=== PATIENT | female | born 1955 | race Caucasian/White ===

== ENCOUNTER → 2021-07-21 13:38 | Outpatient (CLI) | payer OTHER, SELFPAY ==
--- NOTE | 2021-07-21 | DI.MG.S_ITS ---
BILATERAL DIGITAL SCREENING MAMMOGRAM 3D/2D WITH CAD POST LUMPECTOMY: 07/21/2021 CLINICAL: Routine screening. Personal history of right breast cancer. Comparison is made to exams dated: 11/16/2019 mammogram, 11/14/2018 mammogram, and 10/23/2016 mammogram - outside location. The tissue of both breasts is predominantly fatty. Current study was also evaluated with a Computer Aided Detection (CAD) system. There are benign post operative findings in the right breast. No significant masses, calcifications, or other findings are seen in either breast. There has been no significant interval change. IMPRESSION: BENIGN There is no mammographic evidence of malignancy. A 1 year screening mammogram is recommended. This exam was interpreted at Station ID: [id number]. NOTE: For mammograms, a report in lay terms will be sent to the patient. Approximately 15% of breast malignancies will not be visualized mammographically. In the management of a palpable breast mass, a negative mammogram must not discourage biopsy of a clinically suspicious lesion. Electronically Signed By: Miles Davidson acr/roger:07/21/2021 14:58:07 letter sent: Normal Exam ACR BI-RADS Category 2: Benign Finding(s) 3342F
== END ==
PROVIDERS: PCP Internal Medicine; Referring Provider Internal Medicine; Visit Provider Internal Medicine
DX: Z12.31 Encounter for screening mammogram for malignant neoplasm of breast (principal); Z85.3 Personal history of malignant neoplasm of breast
CPT/HCPCS: 77063; 77067

== ENCOUNTER → 2023-05-15 08:28 | Outpatient (CLI) | payer MEDICARE, OTHER, SELFPAY ==
--- NOTE | 2023-05-15 08:33 | DI.MG.S_ITS ---
BILATERAL DIGITAL DIAGNOSTIC MAMMOGRAM 3D/2D: 05/15/2023 CLINICAL: Intermittent pain in bilateral breasts. Comparison is made to exams dated: 07/21/2021 mammogram - [facility], 11/16/2019 mammogram, and 11/14/2018 mammogram - outside location. There are scattered areas of fibroglandular density in both breasts (category b / 25%-50% glandular tissue). There are benign post operative findings in the right breast. No significant masses, calcifications, or other findings are seen in either breast. IMPRESSION: BENIGN There is no mammographic abnormality seen in either breast to correspond with the intermittent diffuse pain, however, clinical followup is recommended. There is no mammographic evidence of malignancy. Return to annual mammogram screening schedule is recommended. This exam was interpreted at Station ID: [id number]. NOTE: For mammograms, a report in lay terms will be sent to the patient. Approximately 15% of breast malignancies will not be visualized mammographically. In the management of a palpable breast mass, a negative mammogram must not discourage biopsy of a clinically suspicious lesion. Electronically Signed By: Mary Benavides M.D. lk/:05/15/2023 09:38:04 letter sent: Clinical Evaluation ACR BI-RADS Category 2: Benign Finding(s) 3342F
== END ==
PROVIDERS: PCP Internal Medicine; Referring Provider Internal Medicine; Visit Provider Internal Medicine
DX: N64.4 Mastodynia (principal); C50.919 Malignant neoplasm of unspecified site of unspecified female breast
CPT/HCPCS: 77066; G0279

== ENCOUNTER 2023-07-02 12:40 | Day surgery (SDC) | payer MEDICARE, OTHER, SELFPAY ==
[2023-07-02] VITALS (7 sets, daily range): BP systolic 130–157; BP diastolic 63–96; PULSE 58–65; RESP 12–20; TEMP 36.2; O2SAT 97–100
--- NOTE | 2023-07-02 | PATH_ITS ---
[facility] Accession Number: [id number] No. of containers..02 Tissue . 01 Material submitted: . PART A: esophagus, E-G Junction - GE JUNCTION PART B: esophagus - ESOPHAGUS . 01 Diagnosis: Part A: GE JUNCTION: Squamous mucosa with mild reactive changes suggestive of reflux. Eosinophils are not increased. . Part B: ESOPHAGUS: Squamous mucosa with no diagnostic alterations. Eosinophils are not increased. STO 07/05/20231720 Local . 01 Electronically signed: . Jamaal Morales MD, Pathologist NPI- [id number] . 01 Gross description: . Part A: GE JUNCTION: Received in formalin is 1 fragment(s) of mercer, soft tissue measuring 0.2 x 0.2 x 0.2 cm submitted entirely in 1 cassette(s) . Part B: ESOPHAGUS: Received in formalin is 1 fragment(s) of mercer, soft tissue measuring 0.2 x 0.2 x 0.2 cm submitted entirely in 1 cassette(s) /TRUMAN 07/05/20231720 Local . 01 Pathologist provided ICD-10: K21.00 . 01 CPT . 467103, 155170 Specimen Comment: A courtesy copy of this report has been sent to [phone] Performed at: 01 [facility] [address] [place] [address] [address], [place], [place] [id number] MD Jamaal Morales MD Phone: [phone]
[2023-07-02] MEDS: LACTATED RINGERS 1,000 ML 42 ML IV (13:07)
--- NOTE | 2023-07-02 13:52 | PM.PREOP ---
Pre-operative Note Interval Note History & Physical reviewed/Exam performed by Physician: Yes Changes to H&P: No
--- NOTE | 2023-07-02 14:49 | P.OP.EGD&C_ITS ---
Operative Date/Time/Diagnoses Date of procedure: 07/02/23 Time of procedure: 14:49 Pre-op diagnosis: Rectal bleeding, GERD Procedure & Clinicians Study performed: Esophagogastroduodenoscopy and colonoscopy Same procedure as scheduled: Yes Indications: Intestinal bleeding Surgeon: Oscar Webster Procedure Notes Procedure in detail: The history and physical was performed/updated and the patient is ASA class is 2. The procedure was discussed in detail with the patient. Potential risks complications including infection, bleeding, missed diagnosis, perforation, need for surgery, and were explained. Their questions were answered and informed consent was obtained. Patient placed in left lateral decubitus position. Time out was performed. Procedural sedation was administered by Anesthesia. A bite block was placed. the scope was inserted into the mouth and advanced through the esophagus and into the stomach. the pylorus was intubated and the duodenum was examined to the 2nd portion.. The scope was retroflexed within the stomach. The stomach was the n decompressed and scope pulled back to the GE junction. The scope was then removed Examination began with a thorough inspection of the perianal area there was no evidence of fissures, fistulae, external hemorrhoids or cutaneous malignancy. The colonoscopy scope was then placed into the anal canal and was advanced to the cecum, which was identified by the ileocecal valve, the appendiceal orifice and the confluence of the taenia. The scope was then slowly withdrawn examining colon thoroughly in all directions, irrigating it of any residual stool. FINDINGS -mild erythema at the GE junction biopsies performed of the GE junction with forceps. Biopsies of the esophagus performed with forceps. -no colon masses or inflammation. -grade 2 internal hemorrhoids. The patient tolerated the procedure well. They will be discharged once criteria are met. The prep was of good/excellent quality. The withdrawl time was 7 minutes. Following completion of the colonoscopy we proceeded with hemorrhoidal banding. The anoscope was placed into the rectum. Exam demonstrated grade 2 internal hemorrhoids in the left lateral and right posterior positions. Each pedicle was grasped with the suction ligated and then doubly ligated at its base. She tolerated the procedure well and was transferred to recovery in stable condition. Specimen(s): other (GE junction, esophagus biopsy) Complications: none Impression: Internal hemorrhoids Post-procedure Plan for aftercare: Avoid constipation. MiraLax stool softener and fiber as needed. Repeat colonoscopy 10 years Disposition: same day surgery
[2023-07-02] MEDS: OXYCODONE IR 5 MG TABLET PO (15:04)
[2023-07-02] MEDS: ACETAMINOPHEN 325 MG TABLET 975 MG PO (15:04)
== END 2023-07-02 15:39 | disposition home or self-care (01) ==
PROVIDERS: PCP Internal Medicine; Referring Provider Surgery; Visit Provider Surgery
PROC: 0DJ08ZZ Inspection of Upper Intestinal Tract, Via Natural or Artificial Opening Endoscopic (ICD-10-PCS; CPT 45378; principal; 2023-07-02 13:45)
PROC: 0DJD8ZZ Inspection of Lower Intestinal Tract, Via Natural or Artificial Opening Endoscopic (ICD-10-PCS; CPT 45378; 2023-07-02 13:45)
DX: K64.1 Second degree hemorrhoids (principal); K21.9 Gastro-esophageal reflux disease without esophagitis; K62.5 Hemorrhage of anus and rectum
CPT/HCPCS: 45378; 46221; 43239; J2704

== ENCOUNTER 2023-12-27 11:17 | Emergency (ER) | payer MEDICARE, OTHER, SELFPAY ==
[2023-12-27 11:20] VITALS: BP 148/77; PULSE 64; RESP 16; TEMP 36.3; O2SAT 99; BMI 25.8
--- NOTE | 2023-12-27 12:22 | ED_ITS ---
HPI - Recheck/Abnormal Lab/Rx <Anay Lopez PA-C - Last Filed: 12/27/23 12:43> General Chief Complaint: Recheck/Abnormal Lab/Rx Stated Complaint: stroke per pt Time Seen by Provider: 12/27/23 11:47 Source: patient Mode of arrival: Ambulatory History of Present Illness HPI narrative: Patient is a very pleasant 68-year-old female that presents to the emergency room department today requesting a Cardiothoracic echo. Patient is here with her , on December 21 her and her went and received their COVID shots. After receiving their COVID shots. The patient started having difficulty buttoning and dressing herself. She had facial coldness, she had left upper extremity weakness, and difficulty using the extremity. Her and her felt that the symptoms that she was having were associated with side effects due to the COVID shot. However the symptoms continued, and did not improve. Due to the longevity of the symptoms they decided to present to the [facility] emergency room department and be evaluated. The evaluation in the emergency department showed that the patient had had a right parietal ischemic stroke. The patient had a head C which was negative for hemorrhagic stroke,, and MRI which showed the right-sided parietal ischemic stroke. Patient had a carotid ultrasound that was negative for any acute or substantial atherosclerosis or narrowing. The emergency room department physician had ordered a cardiac echo however unfortunately the patient was unable to get the echo completed. The patient currently unfortunately does not have a primary care doctor because her primary care doctor has recently quit. Currently they are having difficulty establishing care, and so they were told if they presented to the emergency department they would be able to get an echo. Currently at this time her symptoms are still ongoing, they have not worsened, they have not improved. Patient denies that she has any history of heart problems, she states she does not have any history of atrial fibrillation, she has a family history of PFO(her sister). She does not smoke, no cannabis usage, occasional recreational drink in the evening. The emergency department doctor started her on an aspirin a day which she is currently taking. This morning she woke up with a mild headache. Patient denies recent injury, trauma, fall. The only new change has been the patient recently had her COVID shot on the . Related Data Home Medications Medication Instructions Recorded Confirmed anti inflamatory PO 06/20/23 multivitamin 1 tab PO DAILY 06/20/23 07/02/23 Previous Rx's Medication Instructions Recorded docusate sodium 100 mg capsule 100 mg PO BID #30 caps 07/02/23 (Colace) polyethylene glycol 3350 17 17 g PO DAILY #238 grams 07/02/23 gram/dose oral powder (Miralax) wheat dextrin 3 gram/3.8 gram oral 3 g PO BID #144 grams 07/02/23 powder (Benefiber Sugar Free (dextrin)) Allergies Allergy/AdvReac Type Severity Reaction Status Date / Time latex Allergy Intermediate Rash Verified 12/27/23 11:29 sulfer Allergy Intermediate Wheezing Uncoded 07/02/23 13:11 Review of Systems <Anay Lopez PA-C - Last Filed: 12/27/23 12:43> Review of Systems Narrative: Negative except as above Neurologic Comments: Recent diagnosis of a right parietal ischemic stroke Patient History <Anay Lopez PA-C - Last Filed: 12/27/23 12:43> Surgical History H/O sentinel lymphadenectomy S/P lumpectomy, right breast History of ankle surgery Family History Father Heart disease Sister Heart disease Stroke Breast cancer Mother Skin cancer Social History marital status: household members: spouse lives independently: Yes occupational status: previously employed Smoking Status: Never smoker alcohol intake: current substance use type: does not use Smoking Status: Never smoker alcohol intake frequency: 0-2 drinks per day Substance Use Type: does not use Exam <Anay Lopez PA-C - Last Filed: 12/27/23 12:43> Initial Vital Signs Initial Vital Signs: Vital Signs Temperature 97.3 F L 12/27/23 11:20 Pulse Rate 64 12/27/23 11:20 Respiratory Rate 16 12/27/23 11:20 Blood Pressure 148/77 H 12/27/23 11:20 Pulse Oximetry 99 12/27/23 11:20 Oxygen Delivery Method Room Air 12/27/23 11:20 Reviewed Const General: cooperative, healthy appearing, comfortable, well developed, well groomed, No acute distress, No in distress and anxious Nutritional Appearance: average body habitus and well nourished Orientation: Orientation Eyes General: Yes appearance normal, both eyes and all related structures Eyelids: eyelids normal Pupils: PERRL EOM: EOM intact bilaterally Other: Patient wears glasses Resp Other: Clear to auscultation, no wheezes, rales, rhonchi or crackles. Cardio Other: Regular rate rhythm without any murmurs rubs or gallops. Skin Other: Warm pink and dry. Cap refill is preserved. Pulses are present. Neuro General: patient alert, patient awake, patient oriented x3, oriented and gait normal Cognition: normal cognition Speech: speech normal Gait: normal gait Other: Evaluation, patient does not have any noticeable facial droop, able to open and close her mouth tongue is midline, able to raise her eyebrows, gait is normal, she is minimal noticeable upper extremity weakness. No lower extremity abnormalities. Speaking in full sentences. No slurred speech. Extrem Other: Range of motion pulses, cap refill is preserved to upper lower extremities. I am unable to appreciate any substantial weakness to the upper extremities. She says she has difficulty with spatial movement and dressing herself. <Willard Gardiner DO - Last Filed: 12/27/23 13:35> Initial Vital Signs Initial Vital Signs: Vital Signs Temperature 97.3 F L 12/27/23 11:20 Pulse Rate 64 12/27/23 11:20 Respiratory Rate 16 12/27/23 11:20 Blood Pressure 148/77 H 12/27/23 11:20 Pulse Oximetry 99 12/27/23 11:20 Oxygen Delivery Method Room Air 12/27/23 11:20 Course <nAay Lopez PA-C - Last Filed: 12/27/23 12:43> Vital Signs Vital signs: Vital Signs - 8 hr 12/27/23 11:20 Temperature 97.3 F L Pulse Rate 64 Respiratory Rate 16 Blood Pressure 148/77 H Pulse Oximetry 99 Oxygen Delivery Method Room Air <Willard Gardiner DO - Last Filed: 12/27/23 13:35> Vital Signs Vital signs: Vital Signs - 8 hr 12/27/23 11:20 Temperature 97.3 F L Pulse Rate 64 Respiratory Rate 16 Blood Pressure 148/77 H Pulse Oximetry 99 Oxygen Delivery Method Room Air MDM - Recheck/Abnormal Lab/Rx <Anay Lopez PA-C - Last Filed: 12/27/23 12:43> [facility] Narrative Medical decision making narrative: Patient is a 68-year-old female that was seen yesterday in the emergency room department on [facility], diagnosed with a right parietal ischemic stroke. Her symptoms started on 12/22/2023 after giving a COVID shot. Her and her not present to the emergency room department until 12/26/2023 due to the fact that the symptoms she was having which was cold face, left upper extremity weakness and spatial difficulty, and difficulty dressing herself due to the fact that the symptoms they felt were associated with a COVID shot did not improve. The workup in the emergency department showed that the patient had had a right parietal ischemic stroke. Currently there is between primary care doctors. They presented to the emergency department under the impression that they were seen in the emergency department they will be able to get a Cardiothoracic echo today. I have spent time in the echo department. 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 They did actually speak to this patient and informed her that she needs a primary care doctor, she needs an appointment, she needs a referral, and advised her that unfortunately they would not be able to assist her. However, the patient is still presented to the emergency room department with the thought that if she presented to the emergency department that she would be able to be seen and evaluated since she was in the emergency department. Advised the patient that unfortunately they do not have any spots in the echo department to be seen or have. However, I have encouraged the patient to continue to attempt to establish care with a primary care doctor. Return to the emergency department's of the changes or worsening symptoms. Differential diagnosis; right parietal ischemic stroke. Discharge Plan Departure Patient Disposition: Home Clinical Impression: Ischemic cerebrovascular accident (CVA) Activity Restrictions/Additional Instructions: Currently at this time I have checked with echo, unfortunately they do not have any appointments available today or tomorrow. My suggestion is continue to attempt to find a primary care doctor, you will need a prescription/referral for the test. You will need a doctor to write something i.e. a prescription or referral for the test, because you will need somebody to follow up with the results of those tests. Unless you have someone who is going to be following up with test results it is difficult to get a test actually done. I would suggest that you brought your search for primary care doctor. It does not necessarily need to be at a local hospital system. It can be at primary care clinic in any of the surrounding [place] that have primary care clinics. Continue with your baby aspirin. Prescriptions: No Action multivitamin Tablet 1 tab PO DAILY anti inflamatory PO Rx Instructions: OTC for pain docusate sodium [Colace] 100 mg capsule 100 mg PO BID Qty: 30 0RF polyethylene glycol 3350 [Miralax] 17 gram/dose powder 17 g PO DAILY Qty: 238 0RF Benefiber Sugar Free (dextrin) 3 gram/3.8 gram powder 3 g PO BID Qty: 144 0RF Rx Instructions: mix into at least 4 oz water or juice before administering Referrals: Herminia Jovel MD [Primary Care Provider] - Stand Alone Forms: Patient Portal/API ED Sign-out <Willard Gardiner, - Last Filed: 12/27/23 13:35> [facility]: Dr Gardiner Co-Sign Statement: I was available for consultation during this patient's emergency department visit. This chart is signed by myself for administrative purposes only. I did not have direct contact with this patient during this visit. They were seen independently by the APC.
== END 2023-12-27 12:40 | disposition home or self-care (01) ==
PROVIDERS: Emergency Provider Physician Assistant; PCP Internal Medicine
DX: I63.9 Cerebral infarction, unspecified (principal)
CPT/HCPCS: 99281

== ENCOUNTER → 2024-01-06 09:16 | Outpatient (CLI) | payer MEDICARE, OTHER, SELFPAY | LOC: CAR 09:18 | PROVIDERS: PCP Family Medicine; Referring Provider Family Medicine; Visit Provider Family Medicine | DX: I63.9 Cerebral infarction, unspecified (principal) | CPT/HCPCS: 93242 ==

== ENCOUNTER → 2024-01-13 08:53 | Outpatient (CLI) | payer MEDICARE, OTHER, SELFPAY ==
[2024-01-13 10:31] LABS: Add Manual Diff / Slide Review NO; Basophils Absolute Auto 0 /uL (0-100); Basophils Percent Auto 0.7 % (0-2); Eosinophils Absolute Auto 600 /uL (0-450); Eosinophils Percent Auto 8.3 % (2-4); Hematocrit 42.3 % (36-46); Hemoglobin 14.5 g/dL (12.0-16.0); Lymphocytes Absolute Auto 2000 /uL (1100-4500); Lymphocytes Percent Auto 30.2 % (25-40); Mean Corpuscular HGB Conc 34.4 % (30-36); Mean Corpuscular Hemoglobin 31.9 PG (26-34); Mean Corpuscular Volume 92.8 fL (80-100); Monocytes Absolute Auto 500 /uL (0-900); Monocytes Percent Auto 8.1 % (3-14); Neutrophils Absolute Auto 3500 /uL (1500-7000); Neutrophils Percent Auto 52.7 % (50-75); Platelet Count 293 X10^3/uL (150-400); Red Blood Cell Count 4.55 X10^6/uL (4.0-5.2); White Blood Cell Count 6.7 X10^3/uL (4.5-11.0)
[2024-01-13 10:39] LABS: Alanine Aminotransferase 27 IU/L (<35); Albumin 4.3 g/dL (3.5-5.0); Albumin Globulin Ratio 1.8 (1.0-2.8); Alkaline Phosphatase 95 U/L (38-126); Aspartate Aminotransferase 31 IU/L (14-36); BUN Creatinine Ratio 18.6 (6-22); Bilirubin Total 0.5 mg/dL (0.2-1.3); Blood Urea Nitrogen 16 mg/dL (7-17); Calcium 10.2 mg/dL (8.4-10.2); Carbon Dioxide 29 mmol/L (22-32); Chloride 102 mmol/L (98-107); Cholesterol 154 mg/dL (140-199); Estimated Glomerular Filt Rate > 60 mL/min (>60); Globulin 2.4 g/dL (1.7-4.1); Glucose 99 mg/dL (80-110); HDL Cholesterol 66 mg/dL (40-60); HEMOLYSIS < 15 (0-50); LDL Cholesterol Calculated 64 mg/dL (<100); Potassium 4.6 mmol/L (3.4-5.1); Sodium 137 mmol/L (137-145); Total Protein 6.7 g/dL (6.3-8.2); Triglycerides 119 mg/dL (35-150)
[2024-01-13 11:10] LABS: TSH w/ Reflex to FT4 2.56 uIU/mL (0.47-4.68)
== END ==
PROVIDERS: Family Provider Family Medicine; PCP Family Medicine; Referring Provider Family Medicine; Visit Provider Family Medicine
DX: E78.00 Pure hypercholesterolemia, unspecified (principal); I69.30 Unspecified sequelae of cerebral infarction; G47.30 Sleep apnea, unspecified; Z85.3 Personal history of malignant neoplasm of breast
CPT/HCPCS: 36415; 80053; 80061; 84443; 85025

== ENCOUNTER 2024-02-18 09:45 | Outpatient (RCR) | payer MEDICARE, OTHER, SELFPAY ==
--- NOTE | 2024-01-07 07:54 | PT.OPPOC ---
Physical, Occupational & Speech Therapy At [facility] Current Diagnoses Cerebral infarction, unspecified (01/07/24) Pain in thoracic spine (01/07/24) Muscle weakness (generalized) (01/07/24) Visit Care Team Role Provider Type Marina Billingsley DO Attending Provider Physician Family Provider Primary Care Provider Referring Provider Specialty: Family Practice Address: [address] [place] [address], [address], [facility] Email: [email or web address] Plan Of Care PT-OP-B Current Condition Start: 01/07/24 07:43 Freq: Status: Active Protocol: Document 01/07/24 13:47 [facility] (Rec: 01/07/24 14:35 [facility] [id number]) Current Condition History of Current Condition History of Current Condition 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 Main concerns are L hand, cognitive and speech. She had CVA on Saturday (started having issues, cognitive) and went to the ER is 12/26 when couldn't get in w/doctor. She is having difficulty w/ buttoning and zippers. Has had severe back pain and sensitivity to back and neck. Head barraza where it touches pillow. It takes a lot of focus for use of LUE and huge hesitation w/decision making. She has been going for walks and gardening since and typical ADLs. This happened weeks after being back in town again after 5 months travelling around [place]. Hard to type. PT-OP-T Assessment and Plan Start: 01/07/24 07:43 Freq: Status: Active Protocol: Document 01/07/24 13:47 [facility] (Rec: 01/09/24 07:52 [facility] [id number]) Physical Therapy Assessment Rehab Potential Rehabilitation Potential Excellent Evaluation Complexity Number of Personal Factors/Comorbidities 3 or More Number of Body Systems Impaired 4 or More Clinical Presentation at Evaluation Evolving Impairments Impairments Activity Tolerance,Balance, Functional Activities, Functional Mobility,Gait,Pain, Posture,Soft Tissue Mobility, Strength Goals pain Applied Mathematician Goal (LTG) Pt will report pain no pain in spine during normal daily activities or sleeping LTG Duration 03/17 Core Nursing Home Goal (LTG) Pt will score at least 3/5 on LPM in all planes to show improved trunk stability to improve stability for UE mobility LTG Duration 03/19 strength Short Term Goal (STG) Pt will be indep w/HEP STG Duration 02/06 Applied Mathematician Goal (LTG) Pt will score 5/5 on BLE MMT to show improved strength and stability to show more equal motor control and stability. LTG Duration 03/19 Assessment Summary Assessment Pt presents about 2 weeks after CVA to R parietal lobe with minor LLE weakness, but no major balance deficits noted. She has main complaints of motor control issues w/UE mostly along w/change in cognition and some speech changes. Pt educated on OT and INCUBATOR TENDER to help with those issues and VM left to provider re: this. Pt would benefit from skilled PT to work on LE and core strength as there is notable weakness and pt is typically very active and plans to return to ski this winter. Physical Therapy Plan Frequency and Duration Frequency of Treatment 1-2x/wk Duration of treatment (weeks) 10 Plan of Care Start Date 01/07/24 Plan of Care End Date 03/19/24 Therapeutic Interventions Therapeutic Interventions Balance Training,Home Exercise Program,Joint Mobilizations, Manual Therapy,Neuromuscular Re-education,Patient/Caregiver Education,Self-Care/Home Management,Soft Tissue Mobilization,Taping, Therapeutic Activities, Therapeutic Exercises, Vestibular Rehabilitation Next Visit Focus/Plan Next Note Type Treatment Note Next Visit Plan give LE HEP: squats, lunges, open book, bird dog, plank in clinic: exercises on bosu ( squats, step ups, lunges), shuttle balance w/UE catch/ throw or balloon volley STM to thoracic spine as needed mass flex/ext patterns w/PNF Plan of Care Dates Plan of Care Start Date 01/07/24 Plan of Care End Date 03/19/24 Electronically Signed by: Jodie Chicas, PT 01/09/24 2149 If you are in agreement with this Plan of Care, please return a signed and dated copy. I have reviewed this Plan of Care and certify that the skilled therapy services above are required to meet the patient?s needs. Physician Signature Date Printed Name and Credentials Clinical Instructor Signature Printed Name and Credentials
--- NOTE | 2024-01-07 17:53 | PT-OP ANOTE ---
Called provider's number and VM left requesting OT referral for fine motor work post CVA and MATERIALS CLERK referral for speech and cognition post CVA
--- NOTE | 2024-01-07 17:54 | PT.OIE ---
Current Diagnoses Cerebral infarction, unspecified (01/07/24) Pain in thoracic spine (01/07/24) Muscle weakness (generalized) (01/07/24) Past Medical History (Last Updated 01/02/24 @ 07:44 by Jane Ellis MA) Breast cancer (~2011) Hearing loss (~2017) Hemorrhoids (~2023) Herpes simplex (~1974) Rosacea (~2021) Sleep apnea (~2019) Tinnitus Past Surgical History (Last Reviewed 12/27/23 @ 12:37 by Anay Lopez PA-C) H/O sentinel lymphadenectomy History of ankle surgery S/P lumpectomy, right breast Visit Care Team Role Provider Type Marina Billingsley DO Attending Provider Physician Family Provider Primary Care Provider Referring Provider Specialty: Family Practice Address: [address] [place] [address], [address], [facility] Email: [email or web address] Physical Therapy Initial Evaluation PT-OP-A Visit Information Start: 01/07/24 07:43 Freq: Status: Active Protocol: Document 01/07/24 13:47 [facility] (Rec: 01/09/24 07:52 [facility] [id number]) Out-Patient Physical Therapy Visit Information Visit Information Visit Type Initial Evaluation Visit Note 04/17 Visit Start Time 13:45 Visit Stop Time 14:30 Visit Number 1 Number of BOOK EDITOR Visits 0 PT-OP-B Current Condition Start: 01/07/24 07:43 Freq: Status: Active Protocol: Document 01/07/24 13:47 [facility] (Rec: 01/07/24 14:35 [facility] [id number]) Current Condition History of Current Condition History of Current Condition 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 Main concerns are L hand, cognitive and speech. She had CVA on Saturday (started having issues, cognitive) and went to the ER is 12/26 when couldn't get in w/doctor. She is having difficulty w/ buttoning and zippers. Has had severe back pain and sensitivity to back and neck. Head barraza where it touches pillow. It takes a lot of focus for use of LUE and huge hesitation w/decision making. She has been going for walks and gardening since and typical ADLs. This happened weeks after being back in town again after 5 months travelling around [place]. Hard to type. PT-OP-D Balance Start: 01/07/24 07:43 Freq: Status: Active Protocol: Document 01/07/24 13:47 [facility] (Rec: 01/07/24 14:35 [facility] [id number]) Balance Tests Single Limb Standing Single Limb- Right >30 sec Single Limb- Left >30 sec but w/more deviaton at ankle PT-OP-E Functional Tests Start: 01/07/24 07:43 Freq: Status: Active Protocol: Document 01/07/24 13:47 [facility] (Rec: 01/07/24 14:35 [facility] [id number]) Functional Tests 30 Second Sit to Stand Test Score 7 Five Times Sit to Stand Test Score 20 sec Functional Gait Assessment Score 28/30 PT-OP-G Mobility & Gait Start: 01/07/24 07:43 Freq: Status: Active Protocol: Document 01/07/24 13:47 [facility] (Rec: 01/09/24 07:52 [facility] [id number]) OP Gait Assessment Comments Gait Comments no evidence for imbalance PT-OP-M Strength Start: 01/07/24 07:43 Freq: Status: Active Protocol: Document 01/07/24 13:47 [facility] (Rec: 01/07/24 14:35 [facility] [id number]) Shoulder Strength Shoulder Manual Muscle Testing Right Flexion 4+ Good+ Extension 5 Normal Abduction (C5) 4+ Good+ External Rotation 4+ Good+ Internal Rotation 5 Normal Left Flexion 4 Good Extension 4+ Good+ Abduction (C5) 4- Good- External Rotation 4- Good- Internal Rotation 4+ Good+ Elbow/Forearm Strength Elbow and Forearm Manual Muscle Testing Right Flexion (C6) 5 Normal Extension (C7) 5 Normal Pronation 4 Good Supination 5 Normal Left Flexion (C6) 4+ Good+ Extension (C7) 5 Normal Pronation 4 Good Supination 4+ Good+ Wrist Strength Wrist Manual Muscle Testing Right Flexion (C7) 5 Normal Extension (C6) 5 Normal Ulnar Deviation 5 Normal Radial Deviation 5 Normal Left Flexion (C7) 4 Good Extension (C6) 4 Good Ulnar Deviation 4+ Good+ Radial Deviation 4 Good Hand Inspector Watch Parts/Pinch Strength Hand Dominance Hand Dominance Right Hand Strength Right Comments 24kg, 23kg, 20kg Left Comments 23kg, 22kg, 22kg Hip Strength Hip Manual Muscle Testing Right Flexion (L2) 5 Normal Extension (S1) 3+ Fair+ Abduction 4 Good Adduction 4- Good- External Rotation 5 Normal Internal Rotation 5 Normal Left Flexion (L2) 4- Good- Extension (S1) 3+ Fair+ Abduction 4- Good- Adduction 4- Good- External Rotation 4 Good Internal Rotation 4- Good- Comments Dec core stability noted w/MMT LLE>R Knee Strength Knee Manual Muscle Testing Right Flexion (S2) 5 Normal Extension (L3) 5 Normal Left Flexion (S2) 4 Good Extension (L3) 4+ Good+ Ankle/Foot Strength Ankle and Foot Manual Muscle Testing Right Dorsiflexion (L4) 5 Normal Left Dorsiflexion (L4) 4 Good PT-OP-Q Treatments Start: 01/07/24 07:43 Freq: Status: Active Protocol: Document 01/07/24 13:47 [facility] (Rec: 01/09/24 07:52 [facility] [id number]) Self-Care/Home Management Treatment Education Other Education 12 min: discussed roles of PT vs OT vs PULVERIZER MILL OPERATOR after CVA. Edu that pt main deficits will benefit from OT and PULVERIZER MILL OPERATOR but weakness in core and LLE is notable and best to be addressed now w/PT. informed PT will call provider requesting referral PT-OP-T Assessment and Plan Start: 01/07/24 07:43 Freq: Status: Active Protocol: Document 01/07/24 13:47 [facility] (Rec: 01/09/24 07:52 [facility] [id number]) Physical Therapy Assessment Rehab Potential Rehabilitation Potential Excellent Evaluation Complexity Number of Personal Factors/Comorbidities 3 or More Number of Body Systems Impaired 4 or More Clinical Presentation at Evaluation Evolving Impairments Impairments Activity Tolerance,Balance, Functional Activities, Functional Mobility,Gait,Pain, Posture,Soft Tissue Mobility, Strength Goals pain Prison Goal (LTG) Pt will report pain no pain in spine during normal daily activities or sleeping LTG Duration 03/17 Core Iron Erector Goal (LTG) Pt will score at least 3/5 on LPM in all planes to show improved trunk stability to improve stability for UE mobility LTG Duration 03/19 strength Short Term Goal (STG) Pt will be indep w/HEP STG Duration 02/06 Iron Erector Goal (LTG) Pt will score 5/5 on BLE MMT to show improved strength and stability to show more equal motor control and stability. LTG Duration 03/19 Assessment Summary Assessment Pt presents about 2 weeks after CVA to R parietal lobe with minor LLE weakness, but no major balance deficits noted. She has main complaints of motor control issues w/UE mostly along w/change in cognition and some speech changes. Pt educated on OT and PULVERIZER MILL OPERATOR to help with those issues and VM left to provider re: this. Pt would benefit from skilled PT to work on LE and core strength as there is notable weakness and pt is typically very active and plans to return to [facility] this winter. Physical Therapy Plan Frequency and Duration Frequency of Treatment 1-2x/wk Duration of treatment (weeks) 10 Plan of Care Start Date 01/07/24 Plan of Care End Date 03/19/24 Therapeutic Interventions Therapeutic Interventions Balance Training,Home Exercise Program,Joint Mobilizations, Manual Therapy,Neuromuscular Re-education,Patient/Caregiver Education,Self-Care/Home Management,Soft Tissue Mobilization,Taping, Therapeutic Activities, Therapeutic Exercises, Vestibular Rehabilitation Next Visit Focus/Plan Next Note Type Treatment Note Next Visit Plan give LE HEP: squats, lunges, open book, bird dog, plank in clinic: exercises on bosu ( squats, step ups, lunges), shuttle balance w/UE catch/ throw or balloon volley STM to thoracic spine as needed mass flex/ext patterns w/PNF
--- NOTE | 2024-01-09 11:50 | PT.OTN ---
Current Diagnoses Cerebral infarction, unspecified (01/09/24) Pain in thoracic spine (01/09/24) Muscle weakness (generalized) (01/09/24) Physical Therapy Treatment Note PT-OP-A Visit Information Start: 01/07/24 07:43 Freq: Status: Active Protocol: Document 01/09/24 09:47 (Rec: 01/09/24 10:46 [id number]) Out-Patient Physical Therapy Visit Information Visit Information Visit Type Treatment Note Visit Note 05/18 pt few minutes late Visit Start Time 09:49 Visit Stop Time 10:39 Visit Number 2 Number of CAR PUSHER Visits 1 PT-OP-B Current Condition Start: 01/07/24 07:43 Freq: Status: Active Protocol: Document 01/07/24 13:47 [facility] (Rec: 01/07/24 14:35 [facility] [id number]) Current Condition History of Current Condition History of Current Condition 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 Main concerns are L hand, cognitive and speech. She had CVA on Saturday (started having issues, cognitive) and went to the ER is 12/26 when couldn't get in w/doctor. She is having difficulty w/ buttoning and zippers. Has had severe back pain and sensitivity to back and neck. Head barraza where it touches pillow. It takes a lot of focus for use of LUE and huge hesitation w/decision making. She has been going for walks and gardening since and typical ADLs. This happened weeks after being back in town again after 5 months travelling around [place]. Hard to type. PT-OP-C Subjective Start: 01/07/24 07:43 Freq: Status: Active Protocol: Document 01/09/24 09:47 (Rec: 01/09/24 10:46 [id number]) OP-PT Subjective Patient Comments Patient Comments Pt reports all over headache today, reports has had headaches since cerebral infarct. PT-OP-D Balance Start: 01/07/24 07:43 Freq: Status: Active Protocol: Document 01/07/24 13:47 [facility] (Rec: 01/07/24 14:35 [facility] [id number]) Balance Tests Single Limb Standing Single Limb- Right >30 sec Single Limb- Left >30 sec but w/more deviaton at ankle PT-OP-E Functional Tests Start: 01/07/24 07:43 Freq: Status: Active Protocol: Document 01/07/24 13:47 [facility] (Rec: 01/07/24 14:35 [facility] [id number]) Functional Tests 30 Second Sit to Stand Test Score 7 Five Times Sit to Stand Test Score 20 sec Functional Gait Assessment Score 28/30 PT-OP-G Mobility & Gait Start: 01/07/24 07:43 Freq: Status: Active Protocol: Document 01/07/24 13:47 [facility] (Rec: 01/09/24 07:52 [facility] [id number]) OP Gait Assessment Comments Gait Comments no evidence for imbalance PT-OP-M Strength Start: 01/07/24 07:43 Freq: Status: Active Protocol: Document 01/07/24 13:47 [facility] (Rec: 01/07/24 14:35 [facility] [id number]) Shoulder Strength Shoulder Manual Muscle Testing Right Flexion 4+ Good+ Extension 5 Normal Abduction (C5) 4+ Good+ External Rotation 4+ Good+ Internal Rotation 5 Normal Left Flexion 4 Good Extension 4+ Good+ Abduction (C5) 4- Good- External Rotation 4- Good- Internal Rotation 4+ Good+ Elbow/Forearm Strength Elbow and Forearm Manual Muscle Testing Right Flexion (C6) 5 Normal Extension (C7) 5 Normal Pronation 4 Good Supination 5 Normal Left Flexion (C6) 4+ Good+ Extension (C7) 5 Normal Pronation 4 Good Supination 4+ Good+ Wrist Strength Wrist Manual Muscle Testing Right Flexion (C7) 5 Normal Extension (C6) 5 Normal Ulnar Deviation 5 Normal Radial Deviation 5 Normal Left Flexion (C7) 4 Good Extension (C6) 4 Good Ulnar Deviation 4+ Good+ Radial Deviation 4 Good Hand Microfilm Mounter/Pinch Strength Hand Dominance Hand Dominance Right Hand Strength Right Comments 24kg, 23kg, 20kg Left Comments 23kg, 22kg, 22kg Hip Strength Hip Manual Muscle Testing Right Flexion (L2) 5 Normal Extension (S1) 3+ Fair+ Abduction 4 Good Adduction 4- Good- External Rotation 5 Normal Internal Rotation 5 Normal Left Flexion (L2) 4- Good- Extension (S1) 3+ Fair+ Abduction 4- Good- Adduction 4- Good- External Rotation 4 Good Internal Rotation 4- Good- Comments Dec core stability noted w/MMT LLE>R Knee Strength Knee Manual Muscle Testing Right Flexion (S2) 5 Normal Extension (L3) 5 Normal Left Flexion (S2) 4 Good Extension (L3) 4+ Good+ Ankle/Foot Strength Ankle and Foot Manual Muscle Testing Right Dorsiflexion (L4) 5 Normal Left Dorsiflexion (L4) 4 Good PT-OP-Q Treatments Start: 01/07/24 07:43 Freq: Status: Active Protocol: Document 01/09/24 09:47 (Rec: 01/09/24 10:46 [id number]) Therapeutic Exercises Sidelying Exercises Open book Sidelying Exercise Name Open book w/ and w/out head turns (HEP issued) Comments cues for neutral cervical alignment, some neck discomfort Standing Exercises Lateral lunge Standing Exercise Name lateral lunge (HEP issued) Side bilateral Resistance AROM Comments cues for knees not to extend beyond toes Squats Standing Exercise Name Hip hinge mechanics>squats Side bilateral Resistance AROM Equipment Used Chair behind, wand to assist with hip hinge Comments cued for hip hinge/neutral spinal alignment Other Exercises Bird Dog Other Exercise Name Bird Dog- UE only (HEP issued) Equipment Used mat on floor Comments verbal and tactile cues for core stabilization Plank Other Exercise Name Partial plank, on forearms and knees Side bilateral Resistance AROM Reps/Minutes 10x5 hold Comments verbal/tactile cue, pt education on fists vs wrist ext for pt comfort Neuro Re-Education Treatment Balance Activities BOSU Details 1. step ups 2. Lunges 3. squats (flat side) Surface Unstable Equipment Rail prn Comments cues for ankle/core stabilization PT-OP-T Assessment and Plan Start: 01/07/24 07:43 Freq: Status: Active Protocol: Document 01/09/24 09:47 (Rec: 01/09/24 10:46 [id number]) Physical Therapy Assessment Goals pain Jail Goal (LTG) Pt will report pain no pain in spine during normal daily activities or sleeping LTG Duration 03/17 Core Jail Goal (LTG) Pt will score at least 3/5 on LPM in all planes to show improved trunk stability to improve stability for UE mobility LTG Duration 03/19 strength Short Term Goal (STG) Pt will be indep w/HEP STG Duration 02/06 Jail Goal (LTG) Pt will score 5/5 on BLE MMT to show improved strength and stability to show more equal motor control and stability. LTG Duration 03/19 Assessment Summary Assessment Initiated LE and core strengthening this session. Instructed, educated, and pt demonstrated HEP exercises, hand outs given. Pt required tactile/verbal cues for core stabiliztion and correct execution of exercises. Plan to followup next session on pt tolerance and review HEP exercises. Physical Therapy Plan Frequency and Duration Frequency of Treatment 1-2x/wk Duration of treatment (weeks) 10 Plan of Care Start Date 01/07/24 Plan of Care End Date 03/19/24 Therapeutic Interventions Therapeutic Interventions Balance Training,Home Exercise Program,Joint Mobilizations, Manual Therapy,Neuromuscular Re-education,Patient/Caregiver Education,Self-Care/Home Management,Soft Tissue Mobilization,Taping, Therapeutic Activities, Therapeutic Exercises, Vestibular Rehabilitation Next Visit Focus/Plan Next Note Type Treatment Note Next Visit Plan give LE HEP: squats, lunges, open book, bird dog, plank in clinic: exercises on bosu ( squats, step ups, lunges), shuttle balance w/UE catch/ throw or balloon volley STM to thoracic spine as needed mass flex/ext patterns w/PNF
--- NOTE | 2024-01-09 12:04 | PT.OTN ---
Current Diagnoses Cerebral infarction, unspecified (01/09/24) Pain in thoracic spine (01/09/24) Muscle weakness (generalized) (01/09/24) Physical Therapy Treatment Note PT-OP-A Visit Information Start: 01/07/24 07:43 Freq: Status: Active Protocol: Document 01/09/24 09:47 (Rec: 01/09/24 10:46 [id number]) Out-Patient Physical Therapy Visit Information Visit Information Visit Type Treatment Note Visit Note 05/18 pt few minutes late Visit Start Time 09:49 Visit Stop Time 10:39 Visit Number 2 Number of DRIVER RECRUITER Visits 1 PT-OP-B Current Condition Start: 01/07/24 07:43 Freq: Status: Active Protocol: Document 01/07/24 13:47 [facility] (Rec: 01/07/24 14:35 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 Main concerns are L hand, cognitive and speech. She had CVA on Saturday (started having issues, cognitive) and went to the ER is 12/26 when couldn't get in w/doctor. She is having difficulty w/ buttoning and zippers. Has had severe back pain and sensitivity to back and neck. Head barraza where it touches pillow. It takes a lot of focus for use of LUE and huge hesitation w/decision making. She has been going for walks and gardening since and typical ADLs. This happened weeks after being back in town again after 5 months travelling around [place]. Hard to type. PT-OP-C Subjective Start: 01/07/24 07:43 Freq: Status: Active Protocol: Document 01/09/24 09:47 (Rec: 01/09/24 10:46 [id number]) OP-PT Subjective Patient Comments Patient Comments Pt reports all over headache today, reports has had headaches since cerebral infarct. PT-OP-D Balance Start: 01/07/24 07:43 Freq: Status: Active Protocol: Document 01/07/24 13:47 [facility] (Rec: 01/07/24 14:35 [facility] [id number]) Balance Tests Single Limb Standing Single Limb- Right >30 sec Single Limb- Left >30 sec but w/more deviaton at ankle PT-OP-E Functional Tests Start: 01/07/24 07:43 Freq: Status: Active Protocol: Document 01/07/24 13:47 [facility] (Rec: 01/07/24 14:35 [facility] [id number]) Functional Tests 30 Second Sit to Stand Test Score 7 Five Times Sit to Stand Test Score 20 sec Functional Gait Assessment Score 28/30 PT-OP-G Mobility & Gait Start: 01/07/24 07:43 Freq: Status: Active Protocol: Document 01/07/24 13:47 [facility] (Rec: 01/09/24 07:52 [facility] [id number]) OP Gait Assessment Comments Gait Comments no evidence for imbalance PT-OP-M Strength Start: 01/07/24 07:43 Freq: Status: Active Protocol: Document 01/07/24 13:47 [facility] (Rec: 01/07/24 14:35 [facility] [id number]) Shoulder Strength Shoulder Manual Muscle Testing Right Flexion 4+ Good+ Extension 5 Normal Abduction (C5) 4+ Good+ External Rotation 4+ Good+ Internal Rotation 5 Normal Left Flexion 4 Good Extension 4+ Good+ Abduction (C5) 4- Good- External Rotation 4- Good- Internal Rotation 4+ Good+ Elbow/Forearm Strength Elbow and Forearm Manual Muscle Testing Right Flexion (C6) 5 Normal Extension (C7) 5 Normal Pronation 4 Good Supination 5 Normal Left Flexion (C6) 4+ Good+ Extension (C7) 5 Normal Pronation 4 Good Supination 4+ Good+ Wrist Strength Wrist Manual Muscle Testing Right Flexion (C7) 5 Normal Extension (C6) 5 Normal Ulnar Deviation 5 Normal Radial Deviation 5 Normal Left Flexion (C7) 4 Good Extension (C6) 4 Good Ulnar Deviation 4+ Good+ Radial Deviation 4 Good Hand Sap [place] Consultant/Pinch Strength Hand Dominance Hand Dominance Right Hand Strength Right Comments 24kg, 23kg, 20kg Left Comments 23kg, 22kg, 22kg Hip Strength Hip Manual Muscle Testing Right Flexion (L2) 5 Normal Extension (S1) 3+ Fair+ Abduction 4 Good Adduction 4- Good- External Rotation 5 Normal Internal Rotation 5 Normal Left Flexion (L2) 4- Good- Extension (S1) 3+ Fair+ Abduction 4- Good- Adduction 4- Good- External Rotation 4 Good Internal Rotation 4- Good- Comments Dec core stability noted w/MMT LLE>R Knee Strength Knee Manual Muscle Testing Right Flexion (S2) 5 Normal Extension (L3) 5 Normal Left Flexion (S2) 4 Good Extension (L3) 4+ Good+ Ankle/Foot Strength Ankle and Foot Manual Muscle Testing Right Dorsiflexion (L4) 5 Normal Left Dorsiflexion (L4) 4 Good PT-OP-Q Treatments Start: 01/07/24 07:43 Freq: Status: Active Protocol: Document 01/09/24 09:47 (Rec: 01/09/24 10:46 [id number]) Therapeutic Exercises Sidelying Exercises Open book Sidelying Exercise Name Open book w/ and w/out head turns (HEP issued) Comments cues for neutral cervical alignment, some neck discomfort Standing Exercises Lateral lunge Standing Exercise Name lateral lunge (HEP issued) Side bilateral Resistance AROM Comments cues for knees not to extend beyond toes Squats Standing Exercise Name Hip hinge mechanics>squats Side bilateral Resistance AROM Equipment Used Chair behind, wand to assist with hip hinge Comments cued for hip hinge/neutral spinal alignment Other Exercises Bird Dog Other Exercise Name Bird Dog- UE only (HEP issued) Equipment Used mat on floor Comments verbal and tactile cues for core stabilization Plank Other Exercise Name Partial plank, on forearms and knees Side bilateral Resistance AROM Reps/Minutes 10x5 hold Comments verbal/tactile cue, pt education on fists vs wrist ext for pt comfort Neuro Re-Education Treatment Balance Activities BOSU Details 1. step ups 2. Lunges 3. squats (flat side) Surface Unstable Equipment Rail prn Comments cues for ankle/core stabilization PT-OP-T Assessment and Plan Start: 01/07/24 07:43 Freq: Status: Active Protocol: Document 01/09/24 09:47 (Rec: 01/09/24 10:46 [id number]) Physical Therapy Assessment Goals pain Long-Term Goal (LTG) Pt will report pain no pain in spine during normal daily activities or sleeping LTG Duration 03/17 Core Long-Term Goal (LTG) Pt will score at least 3/5 on LPM in all planes to show improved trunk stability to improve stability for UE mobility LTG Duration 03/19 strength Short Term Goal (STG) Pt will be indep w/HEP STG Duration 02/06 Long-Term Goal (LTG) Pt will score 5/5 on BLE MMT to show improved strength and stability to show more equal motor control and stability. LTG Duration 03/19 Assessment Summary Assessment Initiated LE and core strengthening this session. Instructed, educated, and pt demonstrated HEP exercises, hand outs given. Pt required tactile/verbal cues for core stabiliztion and correct execution of exercises. Plan to followup next session on pt tolerance and review HEP exercises. Physical Therapy Plan Frequency and Duration Frequency of Treatment 1-2x/wk Duration of treatment (weeks) 10 Plan of Care Start Date 01/07/24 Plan of Care End Date 03/19/24 Therapeutic Interventions Therapeutic Interventions Balance Training,Home Exercise Program,Joint Mobilizations, Manual Therapy,Neuromuscular Re-education,Patient/Caregiver Education,Self-Care/Home Management,Soft Tissue Mobilization,Taping, Therapeutic Activities, Therapeutic Exercises, Vestibular Rehabilitation Next Visit Focus/Plan Next Note Type Treatment Note Next Visit Plan give LE HEP: squats, lunges, open book, bird dog, plank in clinic: exercises on bosu ( squats, step ups, lunges), shuttle balance w/UE catch/ throw or balloon volley STM to thoracic spine as needed mass flex/ext patterns w/PNF
--- NOTE | 2024-01-14 16:12 | PT-OP ANOTE ---
Pt called per front desk auxiliary request re:pt confusion on what she needed with scheduling. Called and VM Left saying:She is now scheduled for OT and explained OT for fine motor and PT for LE and core strength. noted she is on [facility] d/t no recent appts and that we have openings this week. Pt told can call back if needed.
--- NOTE | 2024-01-21 17:50 | PT.OTN ---
Current Diagnoses Cerebral infarction, unspecified (01/21/24) Pain in thoracic spine (01/21/24) Muscle weakness (generalized) (01/21/24) Physical Therapy Treatment Note PT-OP-A Visit Information Start: 01/07/24 07:43 Freq: Status: Active Protocol: Document 01/21/24 17:07 [facility] (Rec: 01/21/24 18:21 [facility] [id number]) Out-Patient Physical Therapy Visit Information Visit Information Visit Type Treatment Note Visit Note 06/15 Visit Start Time 17:06 Visit Stop Time 17:46 Visit Number 3 Number of PREMIX CONCRETE BATCHER Visits 0 PT-OP-B Current Condition Start: 01/07/24 07:43 Freq: Status: Active Protocol: Document 01/07/24 13:47 [facility] (Rec: 01/07/24 14:35 [facility] [id number]) Current Condition History of Current Condition History of Current Condition 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 Main concerns are L hand, cognitive and speech. She had CVA on Saturday (started having issues, cognitive) and went to the ER is 12/26 when couldn't get in w/doctor. She is having difficulty w/ buttoning and zippers. Has had severe back pain and sensitivity to back and neck. Head barraza where it touches pillow. It takes a lot of focus for use of LUE and huge hesitation w/decision making. She has been going for walks and gardening since and typical ADLs. This happened weeks after being back in town again after 5 months travelling around [place]. Hard to type. PT-OP-C Subjective Start: 01/07/24 07:43 Freq: Status: Active Protocol: Document 01/21/24 17:07 [facility] (Rec: 01/21/24 18:21 [facility] [id number]) OP-PT Subjective Patient Comments Patient Comments pt notes has been doign HEP PT-OP-D Balance Start: 01/07/24 07:43 Freq: Status: Active Protocol: Document 01/07/24 13:47 [facility] (Rec: 01/07/24 14:35 [facility] [id number]) Balance Tests Single Limb Standing Single Limb- Right >30 sec Single Limb- Left >30 sec but w/more deviaton at ankle PT-OP-E Functional Tests Start: 01/07/24 07:43 Freq: Status: Active Protocol: Document 01/07/24 13:47 [facility] (Rec: 01/07/24 14:35 [facility] [id number]) Functional Tests 30 Second Sit to Stand Test Score 7 Five Times Sit to Stand Test Score 20 sec Functional Gait Assessment Score 28/30 PT-OP-G Mobility & Gait Start: 01/07/24 07:43 Freq: Status: Active Protocol: Document 01/07/24 13:47 [facility] (Rec: 01/09/24 07:52 [facility] [id number]) OP Gait Assessment Comments Gait Comments no evidence for imbalance PT-OP-M Strength Start: 01/07/24 07:43 Freq: Status: Active Protocol: Document 01/07/24 13:47 [facility] (Rec: 01/07/24 14:35 [facility] [id number]) Shoulder Strength Shoulder Manual Muscle Testing Right Flexion 4+ Good+ Extension 5 Normal Abduction (C5) 4+ Good+ External Rotation 4+ Good+ Internal Rotation 5 Normal Left Flexion 4 Good Extension 4+ Good+ Abduction (C5) 4- Good- External Rotation 4- Good- Internal Rotation 4+ Good+ Elbow/Forearm Strength Elbow and Forearm Manual Muscle Testing Right Flexion (C6) 5 Normal Extension (C7) 5 Normal Pronation 4 Good Supination 5 Normal Left Flexion (C6) 4+ Good+ Extension (C7) 5 Normal Pronation 4 Good Supination 4+ Good+ Wrist Strength Wrist Manual Muscle Testing Right Flexion (C7) 5 Normal Extension (C6) 5 Normal Ulnar Deviation 5 Normal Radial Deviation 5 Normal Left Flexion (C7) 4 Good Extension (C6) 4 Good Ulnar Deviation 4+ Good+ Radial Deviation 4 Good Hand Cab Station Attendant/Pinch Strength Hand Dominance Hand Dominance Right Hand Strength Right Comments 24kg, 23kg, 20kg Left Comments 23kg, 22kg, 22kg Hip Strength Hip Manual Muscle Testing Right Flexion (L2) 5 Normal Extension (S1) 3+ Fair+ Abduction 4 Good Adduction 4- Good- External Rotation 5 Normal Internal Rotation 5 Normal Left Flexion (L2) 4- Good- Extension (S1) 3+ Fair+ Abduction 4- Good- Adduction 4- Good- External Rotation 4 Good Internal Rotation 4- Good- Comments Dec core stability noted w/MMT LLE>R Knee Strength Knee Manual Muscle Testing Right Flexion (S2) 5 Normal Extension (L3) 5 Normal Left Flexion (S2) 4 Good Extension (L3) 4+ Good+ Ankle/Foot Strength Ankle and Foot Manual Muscle Testing Right Dorsiflexion (L4) 5 Normal Left Dorsiflexion (L4) 4 Good PT-OP-Q Treatments Start: 01/07/24 07:43 Freq: Status: Active Protocol: Document 01/21/24 17:07 [facility] (Rec: 01/21/24 18:21 [facility] [id number]) Therapeutic Exercises Sidelying Exercises Open book Sidelying Exercise Name Open book Side bilateral Reps/Minutes 10 Standing Exercises Lateral lunge Standing Exercise Name lateral lunge (HEP review Side bilateral Resistance AROM Reps/Minutes 10 ea Comments cues for knees not to extend beyond toes Squats Standing Exercise Name squat review HEP Side bilateral Resistance AROM Equipment Used chair behind Reps/Minutes 2x10 Comments cued for hip hinge/neutral spinal alignment Other Exercises Bird Dog Other Exercise Name Bird Dog- 1. UE only 2. LE Equipment Used mat on floor Reps/Minutes 10 ea Comments verbal and tactile cues for core stabilization Plank Other Exercise Name Partial plank, on forearms and knees Side bilateral Resistance AROM Reps/Minutes 30 sec Comments cues for back position Neuro Re-Education Treatment Balance Activities BOSU Equipment Rail prn Comments 1. step ups x10 B 2. Lunges x10 B 3. squats (flat side)x15 PT-OP-T Assessment and Plan Start: 01/07/24 07:43 Freq: Status: Active Protocol: Document 01/21/24 17:07 [facility] (Rec: 01/21/24 18:21 [facility] [id number]) Physical Therapy Assessment Goals pain Skilled Nursing Goal (LTG) Pt will report pain no pain in spine during normal daily activities or sleeping LTG Duration 03/17 Core Stonecutter Assistant Goal (LTG) Pt will score at least 3/5 on LPM in all planes to show improved trunk stability to improve stability for UE mobility LTG Duration 03/19 strength Short Term Goal (STG) Pt will be indep w/HEP STG Duration 02/06 Skilled Nursing Goal (LTG) Pt will score 5/5 on BLE MMT to show improved strength and stability to show more equal motor control and stability. LTG Duration 03/19 Assessment Summary Assessment Pt did well with exercises w/ some cues needed. Challenged by bosu ball and pt and considering getting one with home so further exercises would beneficial to educate them on especially for core and LE. Physical Therapy Plan Frequency and Duration Frequency of Treatment 1-2x/wk Duration of treatment (weeks) 10 Plan of Care Start Date 01/07/24 Plan of Care End Date 03/19/24 Next Visit Focus/Plan Next Note Type Treatment Note Next Visit Plan review LE HEP: squats, lunges, open book, bird dog, plank in clinic: exercises on bosu ( squats, step ups, lunges, sit backs), shuttle balance w/UE catch/throw or balloon volley STM to thoracic spine as needed mass flex/ext patterns w/PNF
--- NOTE | 2024-01-30 16:28 | PT.OTN ---
Current Diagnoses Cerebral infarction, unspecified (01/30/24) Pain in thoracic spine (01/30/24) Muscle weakness (generalized) (01/30/24) Physical Therapy Treatment Note PT-OP-A Visit Information Start: 01/07/24 07:43 Freq: Status: Active Protocol: Document 01/30/24 10:39 [facility] (Rec: 01/30/24 11:38 [id number]) Out-Patient Physical Therapy Visit Information Visit Information Visit Type Treatment Note Visit Note 07/16 Visit Start Time 10:45 Visit Stop Time 11:25 Visit Number 4 Number of PHOTO TECHNICIAN Visits 1 PT-OP-B Current Condition Start: 01/07/24 07:43 Freq: Status: Active Protocol: Document 01/07/24 13:47 [facility] (Rec: 01/07/24 14:35 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 Main concerns are L hand, cognitive and speech. She had CVA on Saturday (started having issues, cognitive) and went to the ER is 12/26 when couldn't get in w/doctor. She is having difficulty w/ buttoning and zippers. Has had severe back pain and sensitivity to back and neck. Head barraza where it touches pillow. It takes a lot of focus for use of LUE and huge hesitation w/decision making. She has been going for walks and gardening since and typical ADLs. This happened weeks after being back in town again after 5 months travelling around [place]. Hard to type. PT-OP-C Subjective Start: 01/07/24 07:43 Freq: Status: Active Protocol: Document 01/30/24 10:39 (Rec: 01/30/24 11:38 [id number]) OP-PT Subjective Patient Comments Patient Comments Pt reports no new call outs today, exercises going just fine. PT-OP-D Balance Start: 01/07/24 07:43 Freq: Status: Active Protocol: Document 01/07/24 13:47 [facility] (Rec: 01/07/24 14:35 [facility] [id number]) Balance Tests Single Limb Standing Single Limb- Right >30 sec Single Limb- Left >30 sec but w/more deviaton at ankle PT-OP-E Functional Tests Start: 01/07/24 07:43 Freq: Status: Active Protocol: Document 01/07/24 13:47 [facility] (Rec: 01/07/24 14:35 [facility] [id number]) Functional Tests 30 Second Sit to Stand Test Score 7 Five Times Sit to Stand Test Score 20 sec Functional Gait Assessment Score 28/30 PT-OP-G Mobility & Gait Start: 01/07/24 07:43 Freq: Status: Active Protocol: Document 01/07/24 13:47 [facility] (Rec: 01/09/24 07:52 [facility] [id number]) OP Gait Assessment Comments Gait Comments no evidence for imbalance PT-OP-M Strength Start: 01/07/24 07:43 Freq: Status: Active Protocol: Document 01/07/24 13:47 [facility] (Rec: 01/07/24 14:35 [facility] [id number]) Shoulder Strength Shoulder Manual Muscle Testing Right Flexion 4+ Good+ Extension 5 Normal Abduction (C5) 4+ Good+ External Rotation 4+ Good+ Internal Rotation 5 Normal Left Flexion 4 Good Extension 4+ Good+ Abduction (C5) 4- Good- External Rotation 4- Good- Internal Rotation 4+ Good+ Elbow/Forearm Strength Elbow and Forearm Manual Muscle Testing Right Flexion (C6) 5 Normal Extension (C7) 5 Normal Pronation 4 Good Supination 5 Normal Left Flexion (C6) 4+ Good+ Extension (C7) 5 Normal Pronation 4 Good Supination 4+ Good+ Wrist Strength Wrist Manual Muscle Testing Right Flexion (C7) 5 Normal Extension (C6) 5 Normal Ulnar Deviation 5 Normal Radial Deviation 5 Normal Left Flexion (C7) 4 Good Extension (C6) 4 Good Ulnar Deviation 4+ Good+ Radial Deviation 4 Good Hand Cash Poster/Pinch Strength Hand Dominance Hand Dominance Right Hand Strength Right Comments 24kg, 23kg, 20kg Left Comments 23kg, 22kg, 22kg Hip Strength Hip Manual Muscle Testing Right Flexion (L2) 5 Normal Extension (S1) 3+ Fair+ Abduction 4 Good Adduction 4- Good- External Rotation 5 Normal Internal Rotation 5 Normal Left Flexion (L2) 4- Good- Extension (S1) 3+ Fair+ Abduction 4- Good- Adduction 4- Good- External Rotation 4 Good Internal Rotation 4- Good- Comments Dec core stability noted w/MMT LLE>R Knee Strength Knee Manual Muscle Testing Right Flexion (S2) 5 Normal Extension (L3) 5 Normal Left Flexion (S2) 4 Good Extension (L3) 4+ Good+ Ankle/Foot Strength Ankle and Foot Manual Muscle Testing Right Dorsiflexion (L4) 5 Normal Left Dorsiflexion (L4) 4 Good PT-OP-Q Treatments Start: 01/07/24 07:43 Freq: Status: Active Protocol: Document 01/30/24 10:39 [facility] (Rec: 01/30/24 11:38 [facility] [id number]) Gym Equipment Shuttle Balance Red Clips Details AP/lateral Comments WBOS, EO/EC, head turns, NBOS, Staggered stance Therapeutic Exercises Sidelying Exercises Open book Sidelying Exercise Name Open book Side bilateral Reps/Minutes 10 Standing Exercises Lateral lunge Standing Exercise Name lateral lunge (HEP review Side bilateral Resistance AROM Reps/Minutes 10 ea Comments cues for knees not to extend beyond toes Squats Standing Exercise Name squat review HEP Side bilateral Resistance AROM Equipment Used chair behind Reps/Minutes 2x10 Comments cued for hip hinge/neutral spinal alignment Other Exercises Bird Dog Other Exercise Name Bird Dog- 1. UE only 2. LE 3. Alternating Equipment Used mat on floor Reps/Minutes 10 ea Comments verbal and tactile cues for core stabilization Plank Other Exercise Name Partial plank, on forearms and knees Side bilateral Resistance AROM Reps/Minutes x25 x22 Comments cues for back position Neuro Re-Education Treatment Balance Activities BOSU Equipment Rail prn Comments 1. step ups x10 B 2. Lunges x10 B 3. squats (flat side)x15 Self-Care/Home Management Treatment Education Patient Education Body Mechanics,Home Exercise Program,Safety Other Education Pt education on HEP, pt education on safety with balance on BOSU at home, pt education on body mechanics with squats to avoid increased stress on knee joints. PT-OP-T Assessment and Plan Start: 01/07/24 07:43 Freq: Status: Active Protocol: Document 01/30/24 10:39 [facility] (Rec: 01/30/24 11:38 [facility] [id number]) Physical Therapy Assessment Goals pain Retirement Goal (LTG) Pt will report pain no pain in spine during normal daily activities or sleeping LTG Duration 03/17 Core Relationship Mgr Goal (LTG) Pt will score at least 3/5 on LPM in all planes to show improved trunk stability to improve stability for UE mobility LTG Duration 03/19 strength Short Term Goal (STG) Pt will be indep w/HEP STG Duration 02/06 Retirement Goal (LTG) Pt will score 5/5 on BLE MMT to show improved strength and stability to show more equal motor control and stability. LTG Duration 03/19 Assessment Summary Assessment Progressed balance today with addition of shuttle balance, pt more challenged in frontal plane vs saggital plane, plan to progress next session with addition of dynamic UE during balance challenge as able. Pt bought a Bosu replica for home use, issued HEP, reviewed BOSU exercises performed in clinic last session and issued HEP HO for home, educated pt on importance of safety and a safe place to executed with UE support prn. Physical Therapy Plan Frequency and Duration Frequency of Treatment 1-2x/wk Duration of treatment (weeks) 10 Plan of Care Start Date 01/07/24 Plan of Care End Date 03/19/24 Therapeutic Interventions Therapeutic Interventions Balance Training,Home Exercise Program,Joint Mobilizations, Manual Therapy,Neuromuscular Re-education,Patient/Caregiver Education,Self-Care/Home Management,Soft Tissue Mobilization,Taping, Therapeutic Activities, Therapeutic Exercises, Vestibular Rehabilitation Next Visit Focus/Plan Next Note Type Treatment Note Next Visit Plan review LE HEP: squats, lunges, open book, bird dog, plank in clinic: exercises on bosu ( squats, step ups, lunges, sit backs), shuttle balance w/UE catch/throw or balloon volley STM to thoracic spine as needed mass flex/ext patterns w/PNF
--- NOTE | 2024-02-14 11:29 | PT.OTN ---
Current Diagnoses Cerebral infarction, unspecified (02/14/24) Pain in thoracic spine (02/14/24) Muscle weakness (generalized) (02/14/24) Physical Therapy Treatment Note PT-OP-A Visit Information Start: 01/07/24 07:43 Freq: Status: Active Protocol: Document 02/14/24 10:49 SP (Rec: 02/14/24 12:11 SP [id number]) Out-Patient Physical Therapy Visit Information Visit Information Visit Type Treatment Note Visit Note 08/15 Visit Start Time 10:49 Visit Stop Time 11:29 Visit Number 5 (08/15 with eval) Number of SHIPPING AND RECEIVING WEIGHER Visits 2 PT-OP-B Current Condition Start: 01/07/24 07:43 Freq: Status: Active Protocol: Document 01/07/24 13:47 [facility] (Rec: 01/07/24 14:35 [facility] [id number]) Current Condition History of Current Condition History of Current Condition 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 Main concerns are L hand, cognitive and speech. She had CVA on Saturday (started having issues, cognitive) and went to the ER is 12/26 when couldn't get in w/doctor. She is having difficulty w/ buttoning and zippers. Has had severe back pain and sensitivity to back and neck. Head barraza where it touches pillow. It takes a lot of focus for use of LUE and huge hesitation w/decision making. She has been going for walks and gardening since and typical ADLs. This happened weeks after being back in town again after 5 months travelling around [place]. Hard to type. PT-OP-C Subjective Start: 01/07/24 07:43 Freq: Status: Active Protocol: Document 02/14/24 10:49 SP (Rec: 02/14/24 12:11 SP [id number]) OP-PT Subjective Patient Comments Patient Comments Pt reports tightness in lateral neck and into fascial/ jaw during end feel open book. Does get headaches back of head, especially with head pressure on pillow, also migraines. Not having any back pain any more. Incorporating HEP with use of BOSU. Pt asked if using a metal scap massager could help with nerve stimulation to support connections mobililty, speech, though and movement. Also her friend is newly certified in Craniosacral Therapy and wondered if light soft tissue massage can help with mobility . PT-OP-D Balance Start: 01/07/24 07:43 Freq: Status: Active Protocol: Document 01/07/24 13:47 [facility] (Rec: 01/07/24 14:35 [facility] [id number]) Balance Tests Single Limb Standing Single Limb- Right >30 sec Single Limb- Left >30 sec but w/more deviaton at ankle PT-OP-E Functional Tests Start: 01/07/24 07:43 Freq: Status: Active Protocol: Document 01/07/24 13:47 [facility] (Rec: 01/07/24 14:35 [facility] [id number]) Functional Tests 30 Second Sit to Stand Test Score 7 Five Times Sit to Stand Test Score 20 sec Functional Gait Assessment Score 28/30 PT-OP-G Mobility & Gait Start: 01/07/24 07:43 Freq: Status: Active Protocol: Document 01/07/24 13:47 [facility] (Rec: 01/09/24 07:52 [facility] [id number]) OP Gait Assessment Comments Gait Comments no evidence for imbalance PT-OP-M Strength Start: 01/07/24 07:43 Freq: Status: Active Protocol: Document 01/07/24 13:47 [facility] (Rec: 01/07/24 14:35 [facility] [id number]) Shoulder Strength Shoulder Manual Muscle Testing Right Flexion 4+ Good+ Extension 5 Normal Abduction (C5) 4+ Good+ External Rotation 4+ Good+ Internal Rotation 5 Normal Left Flexion 4 Good Extension 4+ Good+ Abduction (C5) 4- Good- External Rotation 4- Good- Internal Rotation 4+ Good+ Elbow/Forearm Strength Elbow and Forearm Manual Muscle Testing Right Flexion (C6) 5 Normal Extension (C7) 5 Normal Pronation 4 Good Supination 5 Normal Left Flexion (C6) 4+ Good+ Extension (C7) 5 Normal Pronation 4 Good Supination 4+ Good+ Wrist Strength Wrist Manual Muscle Testing Right Flexion (C7) 5 Normal Extension (C6) 5 Normal Ulnar Deviation 5 Normal Radial Deviation 5 Normal Left Flexion (C7) 4 Good Extension (C6) 4 Good Ulnar Deviation 4+ Good+ Radial Deviation 4 Good Hand Technical Coordinator/Pinch Strength Hand Dominance Hand Dominance Right Hand Strength Right Comments 24kg, 23kg, 20kg Left Comments 23kg, 22kg, 22kg Hip Strength Hip Manual Muscle Testing Right Flexion (L2) 5 Normal Extension (S1) 3+ Fair+ Abduction 4 Good Adduction 4- Good- External Rotation 5 Normal Internal Rotation 5 Normal Left Flexion (L2) 4- Good- Extension (S1) 3+ Fair+ Abduction 4- Good- Adduction 4- Good- External Rotation 4 Good Internal Rotation 4- Good- Comments Dec core stability noted w/MMT LLE>R Knee Strength Knee Manual Muscle Testing Right Flexion (S2) 5 Normal Extension (L3) 5 Normal Left Flexion (S2) 4 Good Extension (L3) 4+ Good+ Ankle/Foot Strength Ankle and Foot Manual Muscle Testing Right Dorsiflexion (L4) 5 Normal Left Dorsiflexion (L4) 4 Good PT-OP-Q Treatments Start: 01/07/24 07:43 Freq: Status: Active Protocol: Document 02/14/24 10:49 SP (Rec: 02/14/24 12:11 SP [id number]) Therapeutic Exercises Sitting Exercises SCM & Scalene stretch Sitting Exercise Name added to HEP as needed for neck/head tension /c HO Side bilateral Equipment Used gentle anchor skin at clavicle turn head and look up range gentle stretch Reps/Minutes 30SH x2 each side Comments cued gentle stretch not into over pressure, symptom free no dizziness Standing Exercises Lateral lunge Standing Exercise Name Fwd & lateral lunge (HEP review Side bilateral Resistance AROM Reps/Minutes 2x10 ea Comments cues for knees not to extend beyond toes Other Exercises self STMs Other Exercise Name intraoral, SCM Side bilateral Manual Therapy Treatment Consent Patient gave verbal consent for manual Yes treatment Soft Tissue Mobilization Head Body Location 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 Good feedback to light pressure fascial mobility. jaw Body Location masseter, medial pterygoid, diagastric, hypoglossal, platysma Mobilization Type Myofascial Release,Rolling, Sustained Pressure,Other Comments gentle STMs exterior & intraoral and MWM open/close jaw, light jaw clench- provided HOs with education for self application Light pressure feedback, reported light pain referral to R jehovah's witness during medial pterygoid pincer kneading, gone trust manager pressure. Cued breath for relaxation and fascial mobility support. neck Body Location SOR, [place], SCM Mobilization Type Cross-Friction,Rolling, Sustained Pressure,Other Intensity/Depth Moderate Body Position Hooklying Comments gentle STMs and self applicaton, MWM head turn, nod - provided HO Self-Care/Home Management Treatment Education Patient Education Home Exercise Program,Safety Other Education Education on anatomy of head, neck, jaw- during manual gentle tx with instruction self application to provided decreased myofacial tension in head, neck, face. PT-OP-T Assessment and Plan Start: 01/07/24 07:43 Freq: Status: Active Protocol: Document 02/14/24 10:49 SP (Rec: 02/14/24 12:11 SP [id number]) Physical Therapy Assessment Goals pain Stencil Sprayer Goal (LTG) Pt will report pain no pain in spine during normal daily activities or sleeping 02/14/24: GOAL MET:not having pain anymore LTG Duration 03/17 GOAL MET Core Penitentiary Goal (LTG) Pt will score at least 3/5 on LPM in all planes to show improved trunk stability to improve stability for UE mobility LTG Duration 03/19 strength Short Term Goal (STG) Pt will be indep w/HEP STG Duration 02/06 Stencil Sprayer Goal (LTG) Pt will score 5/5 on BLE MMT to show improved strength and stability to show more equal motor control and stability. LTG Duration 03/19 Assessment Summary Assessment Pt have noted improvement with HEP and no back pain anymore. She had good feedback response to manual tx of head, neck and face today to allow head turn with less tension reported into neck and jaw. Provided instruction on set up and carryover self performance for home when needed to give fascial glide with hand out support to continue on own. 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 Pt good response and safe stability during BOSU HEP . WIll progress advanced balance next t to improve stability in community over uneven terrain. SHIPPING AND RECEIVING WEIGHER asked permission speak with her Speech Pathologist seeing at and give feedback of manual to head, jaw, neck did today in case can help with myofascial tension reduction incorporation during her tx. Physical Therapy Plan Frequency and Duration Frequency of Treatment 1-2x/wk Duration of treatment (weeks) 10 Plan of Care Start Date 01/07/24 Plan of Care End Date 03/19/24 Therapeutic Interventions Therapeutic Interventions Balance Training,Home Exercise Program,Joint Mobilizations, Manual Therapy,Neuromuscular Re-education,Patient/Caregiver Education,Self-Care/Home Management,Soft Tissue Mobilization,Taping, Therapeutic Activities, Therapeutic Exercises, Vestibular Rehabilitation Next Visit Focus/Plan Next Note Type Treatment Note Next Visit Plan Ask Response to manual head, neck, intraoral and stretching with HO for self carryover on her own to turn head and support speech pronunciation. POC: review LE HEP: squats, lunges, open book, bird dog, plank in clinic: exercises on bosu ( squats, step ups, lunges, sit backs), shuttle balance w/UE catch/throw or balloon volley STM to thoracic spine as needed mass flex/ext patterns w/PNF
--- NOTE | 2024-02-18 10:36 | PT.OTN ---
Current Diagnoses Cerebral infarction, unspecified (02/18/24) Pain in thoracic spine (02/18/24) Muscle weakness (generalized) (02/18/24) Physical Therapy Treatment Note PT-OP-A Visit Information Start: 01/07/24 07:43 Freq: Status: Active Protocol: Document 02/18/24 08:59 AB (Rec: 02/18/24 10:36 AB [id number]) Out-Patient Physical Therapy Visit Information Visit Information Visit Type Treatment Note Visit Note 09/15 Visit Start Time 09:45 Visit Stop Time 10:30 Visit Number 6 Number of DIAGRAMMER AND SEAMER Visits 3 PT-OP-B Current Condition Start: 01/07/24 07:43 Freq: Status: Active Protocol: Document 01/07/24 13:47 LR (Rec: 01/07/24 14:35 [facility] [id number]) Current Condition History of Current Condition History of Current Condition 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 Main concerns are L hand, cognitive and speech. She had CVA on Saturday (started having issues, cognitive) and went to the ER is 12/26 when couldn't get in w/doctor. She is having difficulty w/ buttoning and zippers. Has had severe back pain and sensitivity to back and neck. Head barraza where it touches pillow. It takes a lot of focus for use of LUE and huge hesitation w/decision making. She has been going for walks and gardening since and typical ADLs. This happened weeks after being back in town again after 5 months travelling around [place]. Hard to type. PT-OP-C Subjective Start: 01/07/24 07:43 Freq: Status: Active Protocol: Document 02/18/24 08:59 AB (Rec: 02/18/24 10:36 AB [id number]) OP-PT Subjective Patient Comments Patient Comments Patient reports the intra oral , neck work felt, but didn't have time to follow up on therapy for self. Patient reports the balance and trunk/ core strength are probably better. Patient reports having no pain start of session. Patient reports moving quickly is difficult. SLS left LE 15 + seconds with femoral IR and LOB within 2 sec ie 17 sec total with head turns. PT-OP-D Balance Start: 01/07/24 07:43 Freq: Status: Active Protocol: Document 01/07/24 13:47 [facility] (Rec: 01/07/24 14:35 [facility] [id number]) Balance Tests Single Limb Standing Single Limb- Right >30 sec Single Limb- Left >30 sec but w/more deviaton at ankle PT-OP-E Functional Tests Start: 01/07/24 07:43 Freq: Status: Active Protocol: Document 01/07/24 13:47 [facility] (Rec: 01/07/24 14:35 [facility] [id number]) Functional Tests 30 Second Sit to Stand Test Score 7 Five Times Sit to Stand Test Score 20 sec Functional Gait Assessment Score 28/30 PT-OP-G Mobility & Gait Start: 01/07/24 07:43 Freq: Status: Active Protocol: Document 01/07/24 13:47 [facility] (Rec: 01/09/24 07:52 [facility] [id number]) OP Gait Assessment Comments Gait Comments no evidence for imbalance PT-OP-M Strength Start: 01/07/24 07:43 Freq: Status: Active Protocol: Document 01/07/24 13:47 [facility] (Rec: 01/07/24 14:35 [facility] [id number]) Shoulder Strength Shoulder Manual Muscle Testing Right Flexion 4+ Good+ Extension 5 Normal Abduction (C5) 4+ Good+ External Rotation 4+ Good+ Internal Rotation 5 Normal Left Flexion 4 Good Extension 4+ Good+ Abduction (C5) 4- Good- External Rotation 4- Good- Internal Rotation 4+ Good+ Elbow/Forearm Strength Elbow and Forearm Manual Muscle Testing Right Flexion (C6) 5 Normal Extension (C7) 5 Normal Pronation 4 Good Supination 5 Normal Left Flexion (C6) 4+ Good+ Extension (C7) 5 Normal Pronation 4 Good Supination 4+ Good+ Wrist Strength Wrist Manual Muscle Testing Right Flexion (C7) 5 Normal Extension (C6) 5 Normal Ulnar Deviation 5 Normal Radial Deviation 5 Normal Left Flexion (C7) 4 Good Extension (C6) 4 Good Ulnar Deviation 4+ Good+ Radial Deviation 4 Good Hand Full Time/Pinch Strength Hand Dominance Hand Dominance Right Hand Strength Right Comments 24kg, 23kg, 20kg Left Comments 23kg, 22kg, 22kg Hip Strength Hip Manual Muscle Testing Right Flexion (L2) 5 Normal Extension (S1) 3+ Fair+ Abduction 4 Good Adduction 4- Good- External Rotation 5 Normal Internal Rotation 5 Normal Left Flexion (L2) 4- Good- Extension (S1) 3+ Fair+ Abduction 4- Good- Adduction 4- Good- External Rotation 4 Good Internal Rotation 4- Good- Comments Dec core stability noted w/MMT LLE>R Knee Strength Knee Manual Muscle Testing Right Flexion (S2) 5 Normal Extension (L3) 5 Normal Left Flexion (S2) 4 Good Extension (L3) 4+ Good+ Ankle/Foot Strength Ankle and Foot Manual Muscle Testing Right Dorsiflexion (L4) 5 Normal Left Dorsiflexion (L4) 4 Good PT-OP-Q Treatments Start: 01/07/24 07:43 Freq: Status: Active Protocol: Document 02/18/24 08:59 AB (Rec: 02/18/24 10:36 AB [id number]) Gym Equipment Shuttle Balance Red Clips Details narrow SUZI, stagger, mini squats Comments CGA eyes closed, scanning and head turns for narrow SUZI, scanning and head turns for stagger, mini squats X 10 Therapeutic Exercises Sidelying Exercises Open book Sidelying Exercise Name Open book Side bilateral Reps/Minutes 10 Comments verbal cues for breathing tactile cues for LE position Standing Exercises Pallof press Side bilateral Resistance latex free level 3 Reps/Minutes X15 each side Comments Verbal and visual cues glute med isometric Side bilateral Reps/Minutes one minute each LE Comments Verbal and visual cues Lateral lunge Standing Exercise Name lateral Side bilateral Resistance AROM Reps/Minutes X10 Comments verbal cues for smaller step if having increased pain Squats Standing Exercise Name sit to stand from varying seat heights Side bilateral Resistance 2 lb each UE level 3 latex free above knees Equipment Used Band and weight to HEP Reps/Minutes 3x10 Comments monitored for pain Manual Therapy Treatment Consent Patient gave verbal consent for manual Yes treatment Soft Tissue Mobilization thoracic paraspinals Body Location thoracic paraspinals and intervertebral tissue Mobilization Type Cross-Friction,Sustained Pressure Intensity/Depth Moderate Body Position Sidelying Comments bilateral prior to stretch PT-OP-T Assessment and Plan Start: 01/07/24 07:43 Freq: Status: Active Protocol: Document 02/18/24 08:59 AB (Rec: 02/18/24 10:36 AB [id number]) Physical Therapy Assessment Goals Core Trouble Tracer Goal (LTG) Pt will score at least 3/5 on LPM in all planes to show improved trunk stability to improve stability for UE mobility LTG Duration 03/19 strength Short Term Goal (STG) Pt will be indep w/HEP STG Duration 02/06 Fdc Goal (LTG) Pt will score 5/5 on BLE MMT to show improved strength and stability to show more equal motor control and stability. LTG Duration 03/19 Assessment Summary Assessment Patient reports having no pain end of session, did report knee discomfort second set of X10 from lowest mat height and was eliminated with height of mat increased. Physical Therapy Plan Frequency and Duration Frequency of Treatment 1-2x/wk Duration of treatment (weeks) 10 Plan of Care Start Date 01/07/24 Plan of Care End Date 03/19/24 Next Visit Focus/Plan Next Note Type Treatment Note Next Visit Plan POC: review LE HEP: squats, lunges, open book, bird dog, plank in clinic: exercises on bosu ( squats, step ups, lunges, sit backs), shuttle balance w/UE catch/throw or balloon volley STM to thoracic spine as needed mass flex/ext patterns w/PNF
--- NOTE | 2024-04-06 09:59 | PT.OPDS ---
Current Diagnoses Cerebral infarction, unspecified (02/18/24) Pain in thoracic spine (02/18/24) Muscle weakness (generalized) (02/18/24) Visit Care Team Role Provider Type Marina Billingsley DO Attending Provider Physician Family Provider Primary Care Provider Referring Provider Specialty: Family Practice Address: [address] [place] [address], [address], [place], [address] Email: 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 Main concerns are L hand, cognitive and speech. She had CVA on Saturday (started having issues, cognitive) and went to the ER is 12/26 when couldn't get in w/doctor. She is having difficulty w/ buttoning and zippers. Has had severe back pain and sensitivity to back and neck. Head barraza where it touches pillow. It takes a lot of focus for use of LUE and huge hesitation w/decision making. She has been going for walks and gardening since and typical ADLs. This happened weeks after being back in town again after 5 months travelling around [place]. Hard to type. PT-OP-C Subjective Start: 01/07/24 07:43 Freq: Status: Active Protocol: Document 02/18/24 08:59 AB (Rec: 02/18/24 10:36 AB [id number]) OP-PT Subjective Patient Comments Patient Comments Patient reports the intra oral , neck work felt, but didn't have time to follow up on therapy for self. Patient reports the balance and trunk/ core strength are probably better. Patient reports having no pain start of session. Patient reports moving quickly is difficult. SLS left LE 15 + seconds with femoral IR and LOB within 2 sec ie 17 sec total with head turns. PT-OP-D Balance Start: 01/07/24 07:43 Freq: Status: Active Protocol: Document 01/07/24 13:47 [facility] (Rec: 01/07/24 14:35 [facility] [id number]) Balance Tests Single Limb Standing Single Limb- Right >30 sec Single Limb- Left >30 sec but w/more deviaton at ankle PT-OP-E Functional Tests Start: 01/07/24 07:43 Freq: Status: Active Protocol: Document 01/07/24 13:47 [facility] (Rec: 01/07/24 14:35 [facility] [id number]) Functional Tests 30 Second Sit to Stand Test Score 7 Five Times Sit to Stand Test Score 20 sec Functional Gait Assessment Score 28/30 PT-OP-G Mobility & Gait Start: 01/07/24 07:43 Freq: Status: Active Protocol: Document 01/07/24 13:47 [facility] (Rec: 01/09/24 07:52 [facility] [id number]) OP Gait Assessment Comments Gait Comments no evidence for imbalance PT-OP-M Strength Start: 01/07/24 07:43 Freq: Status: Active Protocol: Document 01/07/24 13:47 [facility] (Rec: 01/07/24 14:35 [facility] [id number]) Shoulder Strength Shoulder Manual Muscle Testing Right Flexion 4+ Good+ Extension 5 Normal Abduction (C5) 4+ Good+ External Rotation 4+ Good+ Internal Rotation 5 Normal Left Flexion 4 Good Extension 4+ Good+ Abduction (C5) 4- Good- External Rotation 4- Good- Internal Rotation 4+ Good+ Elbow/Forearm Strength Elbow and Forearm Manual Muscle Testing Right Flexion (C6) 5 Normal Extension (C7) 5 Normal Pronation 4 Good Supination 5 Normal Left Flexion (C6) 4+ Good+ Extension (C7) 5 Normal Pronation 4 Good Supination 4+ Good+ Wrist Strength Wrist Manual Muscle Testing Right Flexion (C7) 5 Normal Extension (C6) 5 Normal Ulnar Deviation 5 Normal Radial Deviation 5 Normal Left Flexion (C7) 4 Good Extension (C6) 4 Good Ulnar Deviation 4+ Good+ Radial Deviation 4 Good Hand Media Manager/Pinch Strength Hand Dominance Hand Dominance Right Hand Strength Right Comments 24kg, 23kg, 20kg Left Comments 23kg, 22kg, 22kg Hip Strength Hip Manual Muscle Testing Right Flexion (L2) 5 Normal Extension (S1) 3+ Fair+ Abduction 4 Good Adduction 4- Good- External Rotation 5 Normal Internal Rotation 5 Normal Left Flexion (L2) 4- Good- Extension (S1) 3+ Fair+ Abduction 4- Good- Adduction 4- Good- External Rotation 4 Good Internal Rotation 4- Good- Comments Dec core stability noted w/MMT LLE>R Knee Strength Knee Manual Muscle Testing Right Flexion (S2) 5 Normal Extension (L3) 5 Normal Left Flexion (S2) 4 Good Extension (L3) 4+ Good+ Ankle/Foot Strength Ankle and Foot Manual Muscle Testing Right Dorsiflexion (L4) 5 Normal Left Dorsiflexion (L4) 4 Good PT-OP-T Assessment and Plan Start: 01/07/24 07:43 Freq: Status: Active Protocol: Document 04/06/24 09:58 [facility] (Rec: 04/06/24 09:59 [facility] [id number]) Physical Therapy Assessment Goals Core Usp Goal (LTG) Pt will score at least 3/5 on LPM in all planes to show improved trunk stability to improve stability for UE mobility LTG Duration 03/19 strength Short Term Goal (STG) Pt will be indep w/HEP STG Duration 02/06 Usp Goal (LTG) Pt will score 5/5 on BLE MMT to show improved strength and stability to show more equal motor control and stability. LTG Duration 03/19 Assessment Summary Assessment Pt cancelled last 4 visits w/o rescheduling. Last seen 4 weeks ago. Limited progress made d/t pt only attending 6 visits including IE. Did no longer report back pain though . Physical Therapy Plan Discharge Physical Therapy Discharge Reasons No Longer Attending PT
== END 2024-04-16 15:26 | disposition home or self-care (01) ==
LOC: PHYS 09:45
PROVIDERS: Family Provider Family Medicine; PCP Family Medicine; Referring Provider Family Medicine; Visit Provider Family Medicine
DX: I63.9 Cerebral infarction, unspecified (principal); M62.81 Muscle weakness (generalized); M54.6 Pain in thoracic spine
CPT/HCPCS: 97110; 97112; 97140; 97162; 97535

== ENCOUNTER → 2024-02-23 13:38 | Outpatient (CLI) | payer MEDICARE, OTHER, SELFPAY ==
--- NOTE | 2024-02-23 13:40 | DI.ECHO.S_ITS ---
[facility] : : [address] : : [place] : : [address] : : Phone: [phone] Echocardiogram Report + + :Name: SHANAE MORALES Study Date: 02/23/2024 Height: 65 in : :[facility] ReadingLocation: Weight: 160 lb : : Gender: Female BSA: 1.8 m2 : :: 1955 Age: 68 yrs BP: 124/79 mmHg: :Reason For Study: RULE OUT PFO, HX OF STROKE : :Ordering Physician: HAMIDA, : :ERICKA Performed By: Krishan Otero : :Referring: ERICKA MEI : + + Interpretation Summary The left ventricle is normal in size. Left ventricular systolic function appears normal without focal wall motion abnormalities. The ejection fraction is estimated to be 65-70%. Diastolic parameters suggest a relaxation abnormality of the left ventricle, consistent with probable normal filling pressures. The right ventricle is grossly normal size. The right ventricular systolic function is normal. Injection of contrast documented no interatrial shunt. There is no significant valvular heart disease. The aortic root is normal size. Procedure: A two-dimensional transthoracic echocardiogram with color flow and Doppler was performed. A saline contrast injection was performed to assess for cardiac shunting. The study quality was technically adequate. There is no prior echocardiogram noted for this patient. The patient was in normal sinus rhythm during the exam. Left Ventricle: The left ventricle is normal in size. There is normal left ventricular wall thickness. There is no ventricular septal defect visualized. Left ventricular systolic function appears normal without focal wall motion abnormalities. The ejection fraction is estimated to be 65-70%. Diastolic parameters suggest a relaxation abnormality of the left ventricle, consistent with probable normal filling pressures. Right Ventricle: The right ventricle is grossly normal size. The right ventricle is not well visualized. The right ventricular systolic function is normal. Atria: The left atrial size is normal. Right atrial size is normal. Injection of contrast documented no interatrial shunt. Mitral Valve: The mitral valve is normal in structure and function. There is trace mitral regurgitation. Aortic Valve: The aortic valve is trileaflet. The aortic valve opens well. No aortic regurgitation is present. Tricuspid Valve: The tricuspid valve is normal in structure and function. No tricuspid regurgitation. Pulmonic Valve: The pulmonic valve is normal in structure and function. There is trace pulmonic regurgitation. There is no significant valvular heart disease. Great Vessels: The aortic root is normal size. The dimensions of the ascending aorta are normal. The pulmonary artery is normal size. The IVC is of normal diameter and collapses greater than 50% with a sniff. This suggests a low right atrial pressure of 3 mm Hg. Pericardium/ Pleura There is no pericardial effusion. There is no pleural effusion. MMode/2D Measurements & Calculations LVIDd: 4.1 cm LVOT diam: 1.9 cm LVIDs: 2.0 cm Ao root diam: 2.7 cm FS: 52.5 % asc Aorta Diam: 3.2 cm EPSS: 0.37 cm IVSd: 0.73 cm LVPWd: 0.69 cm LV rodriguez. diameter/BSA (cm/m^2): 2.3 LV sys. diameter/BSA (cm/m^2): 1.1 LA A2 area: 15.8 cm2 RA long axis: 3.3 cm LA A4 area: 14.3 cm2 RA area: 9.0 cm2 LA length (vol): 4.7 cm RA vol: 20.6 ml LA vol: 40.6 ml RA : 11.5 ml/m2 LA vol index: 22.6 ml/m2 IVC diam: 1.6 cm TAPSE: 2.7 cm Doppler Measurements & Calculations Ao V2 max: 168.3 cm/sec LVOT Max Antonio: 132.2 cm/sec Ao V2 mean: 117.7 cm/sec LV V1 max P.0 mmHg Ao max P.3 mmHg LV V1 VTI: 31.0 cm Ao mean P.3 mmHg OSWALDO(I,D): 2.5 cm2 Ao V2 VTI: 35.4 cm OSWALDO(V,D): 2.2 cm2 sev ratio: 0.88 OSWALDO indexed to BSA (cm^2/m^2): 1.4 MV E max antonio: 80.9 cm/sec PA V2 max: 82.9 cm/sec MV A max antonio: 91.1 cm/sec PA V2 mean: 62.1 cm/sec MV E/A: 0.89 PA mean P.7 mmHg Med Peak E' Antonio: 6.9 cm/sec PA pr(Accel): 34.5 mmHg E/E' med: 11.7 Lat Peak E' Antonio: 7.7 cm/sec E/E' lat: 10.5 E/e' average: 11.1 MV dec time: 0.20 sec SV(LVOT): 88.1 ml Reading Physician:03:21 PM
== END ==
LOC: ECHO 13:39
PROVIDERS: Family Provider Family Medicine; PCP Family Medicine; Referring Provider Family Medicine; Visit Provider Family Medicine
DX: I69.30 Unspecified sequelae of cerebral infarction (principal); Z82.79 Family history of other congenital malformations, deformations and chromosomal abnormalities
CPT/HCPCS: 93306

== ENCOUNTER 2024-04-15 10:45 | Outpatient (RCR) | payer MEDICARE, OTHER, SELFPAY ==
--- NOTE | 2024-02-10 14:27 | OT.OPPOC ---
Physical, Occupational & Speech Therapy At [facility] Renee Hines [id number] 1955 Visit Care Team Role Provider Type Marina Billingsley DO Attending Provider Physician Family Provider Primary Care Provider Referring Provider Address: [address] [place] [address], [address], [address] Occupational Therapy Plan of Care OT Outpatient Adult Evaluation Start: 02/10/24 13:53 Freq: Status: Active Protocol: Document 02/10/24 13:53 MARGOTDAMIENADRIA (Rec: 02/10/24 14:25 JOHANNA [id number]) General Information - Adult Visit Information Visit Number 04/17 Plan of Care Dates 02/10/24 - 04/20/24 Insurance Information Medicare; No pre-auth, [place] modifier required after 19 OT visits Session Time Visit Start Date 02/10/24 Visit Start Time 09:45 Visit Stop Time 10:35 Setting Treatment Setting Outpatient Care Visit Type Note Type Initial Evaluation Referral Referring Physician Marina Billingsley Reason for Referral CVA Identification Identification Confirmed Yes Identification Confirmed By name Patient Questionnaires Quick Dash- Upper Extremity Quick Dash UE Score 0 Quick Dash UE Impairment 0% Impaired (Score 0) Quick Dash- Work and Sports Modules Quick Dash W&S Score 12.5/16.7 Quick Dash Work and Sport Impairment 1 to 19% Impaired (Score 1-19) Goals Objective Measurements Objective Measurements AROM WFL/WNL B MMT: R elbow 5; L elbow flexion 4+, extension 5; R wrist 5; L wrist flexion 4, L wrist extension 4 Medical Scientific Officer: R 56, 56, 50 (avg 57.3# ) L 60, 55, 46 (avg 53.7#) Lateral: R 16#, L 11# Pincer: R 7#, L 6.5# 3 jaw: R 13#, L 16# Pt denies sensory deficits 9 hole peg test R 20 seconds, L 26 seconds Fpc Goals Mortgage Lender Goals 1. Pt will participate in visual-perceptual assessments and appropriate goals to be set following results. 2. Pt will increase L eblow and wrist strengths by 1/4 muscle grade or better to faciliate return to yard work tasks. 3. Pt will demonstrate/state body awareness techniques to assist reducing L neglect. 4. Pt will be I with HEP. Assessment/Plan Assessment Patient Response Good Rehabilitation Potential Good Impairments Identified ADLs,Attention,Cognition, Coordination/Dexterity, Functional Activities,Weakness ,Posture,Meaningful Activities ,Safety,Visual Perception,Eye- Hand Coordination Treatment Assessment Pt is 68 yo F referred to skilled OT services due to CVA . Pt had a R parietal lobe CVA . Pt noticed alien hand symptoms in her L hand for several days prior to going to the ED on 12/26. Pt reports that prior to coming to the ED she described her L hand as a non-entity and reports she would look at it and think it was someone else?s hand. She particularly noted difficulty with dressing, gardening, and releasing items. These symptoms were followed by an excruciating headache and exhaustion that persisted for several days. Prior to CVA she?s had episodes of double vision, cold sensation of the face and arm. Neurologist was not able to find cause. Pt reports since her CVA she has been having random ?seizing? of her back, neck, and shoulders. Her skin becomes hypersensitive and she is unable to tolerate the massage or touch. These symptoms are becoming less prevalent. Pt reports that she is told that she is talking slower and more deliberately. ?I feel like my ?s?s? are slipping up.? Pt has recently returned to playing the flute and to doing some chores. She reports significant difficulty in coordinating her 4th and 5th digits. ?I?m missing keys on my flute or keys on the meza board.? Pt has had difficulty with cutting bread. Pt?s spouse reports some cognitive concerns, especially that pt has recently walked away from the vehicle she left running. Pt reports having a difficult time feeling if her gardening glove is on correctly and that on occasion she has forgotten to put it on while handling thorny objects. Pt occasionally forgets her L UE in space. Pt had some difficulty following commands to assess visual titus; however, pt appears to have relatively equal eye movement for visual titus. Pt has mild delay with convergence on L eye. 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 Pt has mild delay with 9 hole peg test on the L, pt performs with less fluidity on the L verses her R. Skilled OT services are appropriate to address pt's concerns with respect to L UE [facility], muscle weakness, dexterity, activity tolerance, BADL/IADL, and neuromuscular re- education while promoting return toward PLOF. Reviewed with Patient Goals Patient Understanding Good Plan Length of treatment (weeks) 10 Plan of Care Start Date 02/10/24 Plan of Care End Date 04/20/24 Treatment Frequency Once a Week Treatment Duration 45 Minutes Therapeutic Contents Functional Activities,Home Exercise Program,Joint Protection,Manual Therapy, Education,Neuromuscular Re- Education,Self-Care, Therapeutic Activities, Therapeutic Exercises Patient Instruction Plan of Care,Questions/ Concerns Functional Wrist/Hand Scan Hand Side Sensory Assessment Sensory Profile2 Electronically Signed by: Shania Pressley OT 02/10/24 3399 If you are in agreement with this Plan of Care, please return a signed and dated copy. I have reviewed this Plan of Care and certify that the skilled therapy services above are required to meet the patient?s needs. Physician Signature Date Printed Name and Credentials Clinical Instructor Signature Printed Name and Credentials
--- NOTE | 2024-02-17 13:20 | OT.OP.TRT ---
Visit Care Team Role Provider Type Marina Billingsley DO Attending Provider Physician Family Provider Primary Care Provider Referring Provider Specialty: Family Practice Address: [address] [place] [address], [facility] [address], [address] Email: [email or web address] Occupational Therapy Treatment Note OT Outpatient Treatment Note - Adult Start: 02/10/24 13:53 Freq: Status: Active Protocol: Document 02/17/24 10:45 JOHANNA (Rec: 02/17/24 10:28 JOHANNA [id number]) OT Outpatient Adult Treatment Note Session Time Visit Start Date 02/17/24 Visit Start Time 10:45 Visit Stop Time 11:30 Visit Information Visit Number 05/18 Plan of Care Dates 02/10/24 - 04/20/24 Insurance Information Medicare; no pre-auth, KX modifier required after 19 OT visits Setting Treatment Setting Outpatient Care Visit Type Note Type Treatment Note - Subjective Identification Type Name Identification Reconciled With Medical Record Observations Every now and then Joaquin and I recognize something that isn't right. Like yesterday he asked me to get red potatoes from the pantry. I grabbed the bag of white potatoes. It was only ten seconds to get into the pantry. Pt reports that sometimes she is holding something in her L hand and did not realize she had anything in her hand. - Objective Objective Measurements [place] Making A: 24:42 seconds Train Making B: 66:29 seconds (1 mistake) [place] Test: 2 min 15.42 seconds (2 mistakes bottom left) Double letter cancellation: C and E, 3 min 47.4 seconds (2 mistakes) SNAP: [place] Neglect Assesment Procedure neglect score of 3/100, normal Bundle Person Goals 1. Pt will participate in visual-perceptual assessments and appropriate goals to be set following results. 2. Pt will increase L elbow and wrist strengths by 1/4 muscle grade or better to facilitate return to yard work tasks. 3. Pt will demonstrate/ state body awareness techniques to assist in reducing L neglect. 4. Pt will be I with HEP. - Treatment 1 Descriptor Visual-perceptual and neglect assessments. Pt completed a series of assessments that test visual spatial, praxis, attention, executive dysfunction, visual neglect, and visual scanning - Assessment Patient Response to Treatment Good Rehabilitation Potential Good Impairments Identified ADLs,Attention,Cognition, Coordination/Dexterity, Functional Activities,Weakness ,Posture,Meaningful Activities ,Safety,Visual Perception,Eye- Hand Coordination Assessment of Improvement During today's assessments, pt performs most scanning tasks in a random fashion, indicating impaired planning. When pt noticed that she missed an item she would appear somewhat agitated with herself as she continued to search for additional mistakes . When pt missed an item, it was generally at least slightly left of midline or greater. Pt performed assessments that test neglect with normal results, despite this, pt verbalizes many examples from her day where she is unaware of her L side. Pt may benefit from stereognosis assessment, unilateral neglect strategies for improved awareness, and possible mirror therapy. Cont per POC. Reviewed with Patient/Caregiver Goals Patient/Caregiver Understanding Good - Plan Therapy Recommendations Continue with Current Program Amount of Therapy Recommended 2-3 Months Frequency of Treatment Once a Week Length of Session 45 Minutes Therapeutic Contents Functional Activities,Home Exercise Program,Joint Protection,Manual Therapy, Education,Neuromuscular Re- Education,Self-Care, Therapeutic Activities, Therapeutic Exercises
--- NOTE | 2024-03-02 10:05 | OT.OP.TRT ---
Visit Care Team Role Provider Type Marina Billingsley DO Attending Provider Physician Family Provider Primary Care Provider Referring Provider Specialty: Family Practice Address: [address] [place] [address], [address], [place], [address] Email: [email or web address] Occupational Therapy Treatment Note OT Outpatient Treatment Note - Adult Start: 02/10/24 13:53 Freq: Status: Active Protocol: Document 03/02/24 09:08 MARGOTSOCRATESTATA (Rec: 03/02/24 10:04 MARGOTDAMIENADRIA [id number]) OT Outpatient Adult Treatment Note Session Time Visit Start Date 03/02/24 Visit Start Time 09:05 Visit Stop Time 09:45 Visit Information Visit Number 06/15 Plan of Care Dates 02/10/24 - 04/20/24 Insurance Information Medicare; no pre-auth, KX modifier required after 19 OT visits Setting Treatment Setting Outpatient Care Visit Type Note Type Treatment Note - Subjective Identification Type Name Identification Reconciled With Medical Record Observations Pt states My L hand is hiding things. She gave the example of accidentally stealing a chapstick from the drug store or searching the entire house for a bottle cap that she is holding in her L hand. - Objective [facility]ci Goals 1. Pt will participate in visual-perceptual assessments and appropriate goals to be set following results. MET 03/01, no new goals required 2. Pt will increase L elbow and wrist strengths by 1/4 muscle grade or better to facilitate return to yard work tasks. 3. Pt will demonstrate/ state body awareness techniques to assist in reducing L neglect. 4. Pt will be I with HEP. - Treatment 3 Descriptor Education: OT discussed available stroke support group , found via stroke.org, with patient. Discussed possible benefits for her specifically. Discussed techniques for becoming more aware of her L UE. OT sresses, throughout treatment session, watching her L UE while performing the tasks 2 Descriptor FMC: table tapping alternating starting with 4th vs 2nd digits 1 Descriptor stereognosis: paper clip, button, golf tomasa, quarter, deion, wing nut, elecrtic cap , washer, poker chip (intact for all) Exercises 1 Descriptor strengthening: putty: red gross grasp, composite finger flexion (hook ), finger extesnion loop, finger extension table top, finger adduction, finger abduction, long roll and tip pinch alternating digits, - Assessment Patient Response to Treatment Good Rehabilitation Potential Good Impairments Identified ADLs,Attention,Cognition, Coordination/Dexterity, Functional Activities,Weakness ,Posture,Meaningful Activities ,Safety,Visual Perception,Eye- Hand Coordination Assessment of Improvement Pt completed stereognosis assessment without any deficits noted. Pt's primary complaint is with respect to her neglect/inattention. OT stresses the importance of watching her L hand while she' s performing tasks to increase input. Pt requires frequent vcs to watch as she performs the tputty exercises. 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 Pt issued tputty HEP and red tputty for home use. OT will reassess to confirm pts correct performance. Cont per established POC. Reviewed with Patient/Caregiver Goals Patient/Caregiver Understanding Good - Plan Therapy Recommendations Continue with Current Program Amount of Therapy Recommended 2-3 Months Frequency of Treatment Once a Week Length of Session 45 Minutes Therapeutic Contents Functional Activities,Home Exercise Program,Joint Protection,Manual Therapy, Education,Neuromuscular Re- Education,Self-Care, Therapeutic Activities, Therapeutic Exercises
--- NOTE | 2024-03-09 09:56 | OT.OP.TRT ---
Visit Care Team Role Provider Type Marina Billingsley DO Attending Provider Physician Family Provider Primary Care Provider Referring Provider Specialty: Family Practice Address: [address] [place] [address], [address], [place], [address] Email: [email or web address] Occupational Therapy Treatment Note OT Outpatient Treatment Note - Adult Start: 02/10/24 13:53 Freq: Status: Active Protocol: Document 03/09/24 08:58 JOHANNA (Rec: 03/09/24 09:56 JOHANNA [id number]) OT Outpatient Adult Treatment Note Session Time Visit Start Date 03/09/24 Visit Start Time 09:00 Visit Stop Time 09:45 Visit Information Visit Number 07/16 Plan of Care Dates 02/10/24 - 04/20/24 Insurance Information Medicare; no pre-auth, KX modifier required after 19 OT visits Setting Treatment Setting Outpatient Care Visit Type Note Type Treatment Note - Subjective Identification Type Name Identification Reconciled With Medical Record Observations Forgetfulness is becoming more prevalent. Yesterday I set some stuff by the door to bring to [place]. Within 3 minutes I forgot all about it Pt reports she is using the putty every other day. Pt reports that she forgets to look at her L UE when doing tasks. 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 Pt will participate in visual-perceptual assessments and appropriate goals to be set following results. MET 03/01, no new goals required 2. Pt will increase L elbow and wrist strengths by 1/4 muscle grade or better to facilitate return to yard work tasks. 3. Pt will demonstrate/state body awareness techniques to assist in reducing L neglect. 4. Pt will be I with HEP. - Treatment 3 Descriptor Education: Discussed techniques for becoming more aware of her L UE. OT stresses, throughout treatment session, watching her L UE while performing the tasks. OT educates pt on benefit of weight bearing and recommends using L UE to perform tasks like wiping down the table. 2 Descriptor FMC: table tapping alternating starting with 4th vs 2nd digits 1 Descriptor hand dexterity and manipulation: pencil shift x 2min pencil rotation CW x1min pencil rotation CCW x1 min translation (picking up 10 small pom poms and releasing them one at a time into container) x3 Exercises 1 Descriptor strengthening: putty: red gross grasp, composite finger flexion (hook ), finger extension loop, finger extension table top, finger adduction, finger abduction, long roll and tip pinch alternating digits (a few reps of each to determine I with HEP) graded clothespins 1st, 4th, and 5th only; yellow-black wrist flex 2# 10x3 wrist ext 2# 10x3 wrist rad/uln dev 2# 10x3 - Assessment Patient Response to Treatment Good Rehabilitation Potential Good Impairments Identified ADLs,Attention,Cognition, Coordination/Dexterity, Functional Activities,Weakness ,Posture,Meaningful Activities ,Safety,Visual Perception,Eye- Hand Coordination Assessment of Improvement Pt pleasant and cooperative during tx session. OT educates pt on the benefits of weight bearing and watching her L UE during functional tasks to promote decreased inattention to L side. Pt verbalizes understanding of these techniques. Pt demonstrates decreased coordination and coordination speed with all FM tasks today with L vs R. Pt demonstrated good visual attention to L side during all treatment tasks with min vcs on occasion. Pt demonstrates tputty exercises with min vcs for digit abd and 3 jaw pulls only, OT will review these two exercises, but otherwise pt is I with HEP. Pt demonstrates progress toward established goals. Cont per POC. Reviewed with Patient/Caregiver Goals,Progress Being Made,Home Exercise Program Patient/Caregiver Understanding Good - Plan Therapy Recommendations Continue with Current Program Amount of Therapy Recommended 2-3 Months Frequency of Treatment Once a Week Length of Session 45 Minutes Therapeutic Contents Functional Activities,Home Exercise Program,Joint Protection,Manual Therapy, Education,Neuromuscular Re- Education,Self-Care, Therapeutic Activities, Therapeutic Exercises
--- NOTE | 2024-03-30 10:42 | OT.OP.TRT ---
Visit Care Team Role Provider Type Marina Billingsley DO Attending Provider Physician Family Provider Primary Care Provider Referring Provider Specialty: Family Practice Address: [address] [place] [address], [address], [place], [address] Email: [email or web address] Occupational Therapy Treatment Note OT Outpatient Treatment Note - Adult Start: 02/10/24 13:53 Freq: Status: Active Protocol: Document 03/30/24 09:45 MARGOTDAMIENDEBBIETATA (Rec: 03/30/24 10:16 MARGOTDAMIENADRIA [id number]) OT Outpatient Adult Treatment Note Session Time Visit Start Date 03/30/24 Visit Start Time 09:45 Visit Stop Time 10:20 Visit Information Visit Number 08/15 Plan of Care Dates 02/10/24 - 04/20/24 Insurance Information Medicare; no pre-auth, KX modifier required after 19 OT visits Setting Treatment Setting Outpatient Care Visit Type Note Type Treatment Note - Subjective Identification Type Name Identification Reconciled With Medical Record Observations Pt reports she has anxiety over misplacing things which has become common. Pt reports that she is trying to watch her L hand while performing her exercises and daily tasks. It seems like it is easier to do things. I can play the flute, it is working. Pt reports that her says she is speaking more loudly than normal. - Objective Senior Living Goals 1. Pt will participate in visual-perceptual assessments and appropriate goals to be set following results. MET 03/01, no new goals required 2. Pt will increase L elbow and wrist strengths by 1/4 muscle grade or better to facilitate return to yard work tasks. 3. Pt will demonstrate/state body awareness techniques to assist in reducing L neglect. 4. Pt will be I with HEP. - Treatment 3 Descriptor Education: OT reviewed discussion of techniques for becoming more aware of her L UE. Pt verbalized understanding. 2 Descriptor FMC: 1 Descriptor hand dexterity and manipulation: pencil shift x 2 min pencil rotation CW x1 min pencil rotation CCW x1 min translation (picking up 10 small pom poms and releasing them one at a time into container) x5 Exercises 1 Descriptor strengthening: putty: red pt demonstrates a few repetitions of her HEP, pt I with HEP. flex bar (red): wrist flex/ext , pronation, supination 10x2 each - Assessment Patient Response to Treatment Good Rehabilitation Potential Good Impairments Identified ADLs,Attention,Cognition, Coordination/Dexterity, Functional Activities,Weakness ,Posture,Meaningful Activities ,Safety,Visual Perception,Eye- Hand Coordination Assessment of Improvement Pt required fewer vcs to attend to her L side throughout tx session today. Pt demonstrates good control with FM and dexterity tasks, she performs these with slow controlled movements, appropriate for a non dominant hand. Pt demonstrates I with tputty exercises, pt reports performing these regularly since last appointment as well . Cont per established POC progressing toward goals. Reviewed with Patient/Caregiver Goals,Progress Being Made,Home Exercise Program Patient/Caregiver Understanding Good - Plan Therapy Recommendations Continue with Current Program Amount of Therapy Recommended 2-3 Months Frequency of Treatment Once a Week Length of Session 45 Minutes Therapeutic Contents Functional Activities,Home Exercise Program,Joint Protection,Manual Therapy, Education,Neuromuscular Re- Education,Self-Care, Therapeutic Activities, Therapeutic Exercises
--- NOTE | 2024-04-06 10:40 | OT.OP.TRT ---
Visit Care Team Role Provider Type Marina Billingsley DO Attending Provider Physician Family Provider Primary Care Provider Referring Provider Specialty: Family Practice Address: [address] [place] [address], [address], [place], [address] Email: [email or web address] Occupational Therapy Treatment Note OT Outpatient Treatment Note - Adult Start: 02/10/24 13:53 Freq: Status: Active Protocol: Document 04/06/24 09:48 JOHANNA (Rec: 04/06/24 10:28 [email or web address] [id number]) OT Outpatient Adult Treatment Note Session Time Visit Start Date 04/06/24 Visit Start Time 09:45 Visit Stop Time 10:30 Visit Information Visit Number 09/15 Plan of Care Dates 02/10/24 - 04/20/24 Insurance Information Medicare; no pre-auth, [place] modifier required after 19 OT visits Setting Treatment Setting Outpatient Care Visit Type Note Type Treatment Note - Subjective Identification Type Name Identification Reconciled With Medical Record Observations I haven't had any problems with my L hand hiding things Pt reports she has had several friends pass away in the last few weeks, it has been a challenging emotional week. I have been cooking and staying active. Pt reports that she has been looking at it when I'm buttoning things and doing my exercises - Objective Objective Measurements MMT: L elbow flex 5/5, wrist flexion and ext 5/5 L lace pinner 56, 51, 45 (avg 50.7#) lateral 12#L pincer 8# L 3 jaw 17#L Skilled Nursing Goals 1. Pt will participate in visual-perceptual assessments and appropriate goals to be set following results. MET 03/01, no new goals required 2. Pt will increase L elbow and wrist strengths by 1/4 muscle grade or better to facilitate return to yard work tasks. MET 04/06/24 3. Pt will demonstrate/state body awareness techniques to assist in reducing L neglect. 04/06/24 4. Pt will be I with HEP. - Treatment 3 Descriptor Education: 2 Descriptor FMC: table tapping alternating starting with 4th through 2nd digits 1 Descriptor hand dexterity and manipulation: pencil shift x pencil rotation CW x pencil rotation CCW x translation (picking up 10 small pom poms and releasing them one at a time into container) x5 Exercises 1 Descriptor strengthening: flex bar (red): wrist flex/ext , pronation, supination 10x2 each graded clothespins 1st, 4th, and 5th only; yellow-black 10x each blue digi flex alternating digits x10 - Assessment Patient Response to Treatment Good Rehabilitation Potential Good Impairments Identified ADLs,Attention,Cognition, Coordination/Dexterity, Functional Activities,Weakness ,Posture,Meaningful Activities ,Safety,Visual Perception,Eye- Hand Coordination Assessment of Improvement Pt reports not noticing any alien hand moments since last treatment. Pt has met goals #2 and # 3. Pt tolerates additional strengthening exercises well. OT issued pt new resistance exercises for HEP to allow pt to continue to progress on her own. OT to review them next tx. OT encourages pt to try playing her flute before next tx session so she can report on any difficulties. Cont per established POC. Reviewed with Patient/Caregiver Goals Patient/Caregiver Understanding Good - Plan Therapy Recommendations Continue with Current Program Amount of Therapy Recommended 2-3 Months Frequency of Treatment Once a Week Length of Session 45 Minutes Therapeutic Contents Functional Activities,Home Exercise Program,Joint Protection,Manual Therapy, Education,Neuromuscular Re- Education,Self-Care, Therapeutic Activities, Therapeutic Exercises
--- NOTE | 2024-04-15 11:34 | OT.OP.DC ---
Visit Care Team Role Provider Type Marina Billingsley DO Attending Provider Physician Family Provider Primary Care Provider Referring Provider Address: [address] [place] [address], [address], [place], [address] Email: [email or web address] Outpatient OT Outpatient Adult Evaluation Start: 02/10/24 13:53 Freq: Status: Active Protocol: Document 02/10/24 13:53 JOHANNA (Rec: 02/10/24 14:25 JOHANNA [id number]) General Information - Adult Visit Information Visit Number 04/17 Plan of Care Dates 02/10/24 - 04/20/24 Insurance Information Medicare; No pre-auth, [place] modifier required after 19 OT visits Session Time Visit Start Date 02/10/24 Visit Start Time 09:45 Visit Stop Time 10:35 Setting Treatment Setting Outpatient Care Visit Type Note Type Initial Evaluation Referral Referring Physician Marina Billingsley Reason for Referral CVA Identification Identification Confirmed Yes Identification Confirmed By name Patient Questionnaires Quick Dash- Upper Extremity Quick Dash UE Score 0 Quick Dash UE Impairment 0% Impaired (Score 0) Quick Dash- Work and Sports Modules Quick Dash W&S Score 12.5/16.7 Quick Dash Work and Sport Impairment 1 to 19% Impaired (Score 1-19) Goals Objective Measurements Objective Measurements AROM WFL/WNL B MMT: R elbow 5; L elbow flexion 4+, extension 5; R wrist 5; L wrist flexion 4, L wrist extension 4 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 Pt will participate in visual-perceptual assessments and appropriate goals to be set following results. 2. Pt will increase L eblow and wrist strengths by 1/4 muscle grade or better to faciliate return to yard work tasks. 3. Pt will demonstrate/state body awareness techniques to assist reducing L neglect. 4. Pt will be I with HEP. Assessment/Plan Assessment Patient Response Good Rehabilitation Potential Good Impairments Identified ADLs,Attention,Cognition, Coordination/Dexterity, Functional Activities,Weakness ,Posture,Meaningful Activities ,Safety,Visual Perception,Eye- Hand Coordination Treatment Assessment Pt is 68 yo F referred to skilled OT services due to CVA . Pt had a R parietal lobe CVA . Pt noticed alien hand symptoms in her L hand for several days prior to going to the ED on 12/26. Pt reports that prior to coming to the ED she described her L hand as a non-entity and reports she would look at it and think it was someone else?s hand. She particularly noted difficulty with dressing, gardening, and releasing items. These symptoms were followed by an excruciating headache and exhaustion that persisted for several days. Prior to CVA she?s had episodes of double vision, cold sensation of the face and arm. Neurologist was not able to find cause. Pt reports since her CVA she has been having random ?seizing? of her back, neck, and shoulders. Her skin becomes hypersensitive and she is unable to tolerate the massage or touch. These symptoms are becoming less prevalent. Pt reports that she is told that she is talking slower and more deliberately. ?I feel like my ?s?s? are slipping up.? Pt has recently returned to playing the flute and to doing some chores. She reports significant difficulty in coordinating her 4th and 5th digits. ?I?m missing keys on my flute or keys on the meza board.? Pt has had difficulty with cutting bread. Pt?s spouse reports some cognitive concerns, especially that pt has recently walked away from the vehicle she left running. Pt reports having a difficult time feeling if her gardening glove is on correctly and that on occasion she has forgotten to put it on while handling thorny objects. Pt occasionally forgets her L UE in space. Pt had some difficulty following commands to assess visual titus; however, pt appears to have relatively equal eye movement for visual titus. Pt has mild delay with convergence on L eye. 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 Pt has mild delay with 9 hole peg test on the L, pt performs with less fluidity on the L verses her R. Skilled OT services are appropriate to address pt's concerns with respect to L UE FMC/GMC, muscle weakness, dexterity, activity tolerance, BADL/IADL, and neuromuscular re- education while promoting return toward PLOF. Reviewed with Patient Goals Patient Understanding Good Plan Length of treatment (weeks) 10 Plan of Care Start Date 02/10/24 Plan of Care End Date 04/20/24 Treatment Frequency Once a Week Treatment Duration 45 Minutes Therapeutic Contents Functional Activities,Home Exercise Program,Joint Protection,Manual Therapy, Education,Neuromuscular Re- Education,Self-Care, Therapeutic Activities, Therapeutic Exercises Patient Instruction Plan of Care,Questions/ Concerns Functional Wrist/Hand Scan Hand Side Sensory Assessment Sensory Profile2 OT Outpatient Discharge Note - Adult Start: 02/10/24 13:53 Freq: Status: Active Protocol: Document 04/15/24 10:46 MARGOTTAZ (Rec: 04/15/24 11:34 MARGOTDAMIENDEBBIETATA [id number]) OT Outpatient Adult Discharge Note Session Time Visit Start Date 04/15/24 Visit Start Time 10:45 Visit Stop Time 11:30 Visit Information Visit Number [id number] Plan of Care Dates 02/10/24 - 04/20/24 Insurance Information Medicare; no pre-auth, [place] modifier required after 19 OT visits Setting Treatment Setting Outpatient Care Visit Type Note Type Discharge Note - Subjective Identification Type Name Identification Reconciled With Medical Record Observations Pt reports that during ST today she was writing the word bagel, when she was writing she skipped the a and wrote bgel. My hand writing doesn't seem the same. It seems more reckless. Pt reports that she played the flute last night and did not miss any keys. Pt also reports improved typing, although she continues to occasionally miss keys with her L 5th digit . - Objective Objective Measurements L 60, 45, 46 (avg 50.3#) lateral 12#, pincer 12#, 3 jaw 13# 9 hole peg test 30 seconds, 25 seconds Lpn Rn Hospice Goals 1. Pt will participate in visual-perceptual assessments and appropriate goals to be set following results. MET 03/01, no new goals required 2. Pt will increase L elbow and wrist strengths by 1/4 muscle grade or better to facilitate return to yard work tasks. MET 04/06/24 3. Pt will demonstrate/state body awareness techniques to assist in reducing L neglect. 04/06/24 4. Pt will be I with HEP. - Assessment of Improvement Pt demonstrates a 1# increase in lateral pinch L and a 5.5# increase in L pincer pinch. Pt with no significant change in 9 hole peg test (26 seconds on eval) today's best being 25 seconds. Pt reports no longer having any difficulty when playing the flute and has noticed improved safety awareness (no longer leaving the car running for example). Pt is concerned with her handwriting, stating that she has been leaving out letters when writing. Pt reports she intends to practice this task. Pt has made good progress with skilled OT services. Pt and OT discussed current progress and rehab potential, both pt and therapist agree that pt has made good progress with overall awareness of L UE and that pt has necessary tools for continuing to improve on her own. D/C from OT services at this time. Reviewed with Patient/Caregiver Goals,Progress Being Made,Home Exercise Program Patient/Caregiver Understanding Good - Plan Therapy Recommendations D/C to HEP
--- NOTE | 2024-04-15 12:38 | OT.OP.TRT ---
Visit Care Team Role Provider Type Marina Billingsley DO Attending Provider Physician Family Provider Primary Care Provider Referring Provider Specialty: Family Practice Address: [address] [place] [address], [address], [place], [address] Email: [email or web address] Occupational Therapy Treatment Note OT Outpatient Treatment Note - Adult Start: 02/10/24 13:53 Freq: Status: Active Protocol: Document 04/15/24 10:46 JOHANNA (Rec: 04/15/24 11:34 JOHANNA [id number]) OT Outpatient Adult Treatment Note Session Time Visit Start Date 04/15/24 Visit Start Time 10:45 Visit Stop Time 11:30 Visit Information Visit Number 10/15 Plan of Care Dates 02/10/24 - 04/20/24 Insurance Information Medicare; no pre-auth, [place] modifier required after 19 OT visits Setting Treatment Setting Outpatient Care Visit Type Note Type Treatment Note - Subjective Identification Type Name Identification Reconciled With Medical Record Observations Pt reports that during ST today she was writing the word bagel, when she was writing she skipped the a and wrote bgel. My hand writing doesn't seem the same. It seems more reckless. Pt reports that she played the flute last night and did not miss any keys. Pt also reports improved typing, although she continues to occasionally miss keys with her L 5th digit . 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 Pt will participate in visual-perceptual assessments and appropriate goals to be set following results. MET 03/01, no new goals required 2. Pt will increase L elbow and wrist strengths by 1/4 muscle grade or better to facilitate return to yard work tasks. MET 04/06/24 3. Pt will demonstrate/state body awareness techniques to assist in reducing L neglect. 04/06/24 4. Pt will be I with HEP. - Treatment 2 Descriptor FMC: 9 hole peg test with L 30 seconds, 25 seconds 1 Descriptor hand dexterity and manipulation: pencil shift x 2 min pencil rotation CW x1 min pencil rotation CCW x1 min translation (picking up 10 small pom poms and releasing them one at a time into container) x5 Exercises 1 Descriptor strengthening: wrist flex 2# 10x3 wrist ext 2# 10x3 - Assessment Patient Response to Treatment Good Rehabilitation Potential Good Impairments Identified ADLs,Attention,Cognition, Coordination/Dexterity, Functional Activities,Weakness ,Posture,Meaningful Activities ,Safety,Visual Perception,Eye- Hand Coordination Assessment of Improvement Pt demonstrates a 1# increase in lateral pinch L and a 5.5# increase in L pincer pinch. Pt with no significant change in 9 hole peg test (26 seconds on eval) today's best being 25 seconds. Pt reports no longer having any difficulty when playing the flute and has noticed improved safety awareness (no longer leaving the car running for example). Pt is concerned with her handwriting, stating that she has been leaving out letters when writing. Pt reports she intends to practice this task. Pt has made good progress with skilled OT services. Cont per established POC. Reviewed with Patient/Caregiver Goals,Progress Being Made,Home Exercise Program Patient/Caregiver Understanding Good - Plan Therapy Recommendations Continue with Current Program Amount of Therapy Recommended 2-3 Months Frequency of Treatment Once a Week Length of Session 45 Minutes Therapeutic Contents Functional Activities,Home Exercise Program,Joint Protection,Manual Therapy, Education,Neuromuscular Re- Education,Self-Care, Therapeutic Activities, Therapeutic Exercises
== END 2024-04-23 11:13 | disposition home or self-care (01) ==
LOC: OT 10:45
PROVIDERS: Family Provider Family Medicine; PCP Family Medicine; Referring Provider Family Medicine; Visit Provider Family Medicine
DX: I69.30 Unspecified sequelae of cerebral infarction (principal)
CPT/HCPCS: 97110; 97165; 97530

== ENCOUNTER → 2024-08-14 07:54 | Outpatient (CLI) | payer MEDICARE, OTHER, SELFPAY ==
--- NOTE | 2024-08-14 07:55 | DI.MG.S_ITS ---
MM screening mammo BI: 08/14/2024. BI-RADS: 2 CLINICAL: 69-year old female for bilateral screening mammogram. No Tyrer-Cuzick risk score calculation due to the patient's personal history of breast cancer. Patient reports a history of right breast carcinoma diagnosed at age 56. Status-post right lumpectomy with chemotherapy and hormonal therapy. Current reported family history of breast cancer: sister. The patient reports testing negative for BRCA gene mutation. PRIOR EXAMS 05/15/2023, 07/21/2021. MAMMOGRAPHY TECHNIQUE: 2D and 3D (tomosynthesis) digital mammographic views obtained, with additional images as needed for full coverage. Current study was also evaluated with a Computer Aided Detection (CAD) system. DENSITY B. There are scattered areas of fibroglandular density. MAMMOGRAPHY FINDINGS Right: Benign-appearing post-surgical changes noted on the right. There are no suspicious masses, calcifications, or other findings in the breast. Left: No suspicious mass, asymmetry, microcalcification, or other abnormality seen. IMPRESSION: Right * No evidence of malignancy with benign findings. Left * No evidence of malignancy. RECOMMENDATIONS Bilateral * Annual screening mammography. OVERALL ASSESSMENT CATEGORY BI-RADS-2: Benign. [employer] recommends annual screening mammography beginning at age 40 for women with average risk of breast cancer. ELECTRONICALLY SIGNED: Rajinder Arango M.D. on 08/17/2024 at 03:01:41 PM PT Interpreting Station ID: [id number]
== END ==
LOC: MAMMO 07:55
PROVIDERS: Family Provider Family Medicine; PCP Family Medicine; Referring Provider Family Medicine; Visit Provider Family Medicine
DX: Z12.31 Encounter for screening mammogram for malignant neoplasm of breast (principal); Z85.3 Personal history of malignant neoplasm of breast; Z80.3 Family history of malignant neoplasm of breast
CPT/HCPCS: 77063; 77067